=== PATIENT | female | born 1940 | race Caucasian/White ===

== ENCOUNTER 2016-03-09 15:36 | Outpatient (CLI) ==
--- NOTE | 2016-03-09 16:12 | DI ---
EXAM: Two views of the chest. History: Cough. Comparison: Chest radiograph 08/22/2015 Findings: Heart size is normal. Lingular subsegmental atelectasis or infiltrate similar to the prev ious study. No developing opacities. No pleural fluid and no pneumothorax. No acute osseous abnor malities. Impression: Mild lingular subsegmental atelectasis or infiltrate similar to the previous study.
== END 2016-03-09 15:37 | disposition home or self-care (01) ==
LOC: RAD 15:36
PROVIDERS: ATTEND Family Medicine
DX: R05 Cough (principal)

== ENCOUNTER 2016-05-14 12:33 | Outpatient (CLI) | payer OTHER ==
--- NOTE | 2016-05-14 13:12 | DI ---
EXAM: PA and lateral views of the chest HISTORY: Cough. COMPARISON: Chest x-ray 03/09/2016 FINDINGS: The cardiomediastinal silhouette is normal. There is no pneumothorax or pleural effusion . There is no consolidation, nodule or mass. The osseous structures demonstrate significant degene rative disease. There are surgical clips in right upper quadrant. IMPRESSION: No acute cardiopulmonary process.
== END 2016-05-14 12:34 | disposition home or self-care (01) ==
LOC: RAD 12:33
PROVIDERS: ATTEND Family Medicine
DX: J40 Bronchitis, not specified as acute or chronic (principal); R05 Cough

== ENCOUNTER 2016-06-12 18:43 | Inpatient (IN) ==
--- NOTE | 2016-06-12 19:29 | ED.PDOC ---
General ED Provider: Dr. LISA MADDEN Chief Complaint: Abdominal Pain Stated Complaint: hurting in the uppwer part of the belly, nausea, has been hurtingin the head, and some dizziness since . also right side chest pain, hurts to breath. Time Seen by Physician: 19:27 Mode of Arrival: Walk-In Information Source: Patient Primary Care Provider: KAL LYONS Nursing and Triage Documentation Reviewed and Agree: Yes GI Complaint Exam - Abdominal Pain Complaint/Exam Onset: Gradual Symptoms Are: Still present Initial Severity: Moderate Current Severity: Moderate Location of Pain: Epigastric Character: Reports: Dull, Aching Aggravating: Reports: Food, Deep breaths Alleviating: Reports: None Associated Signs and Symptoms: Reports: Dizziness, Nausea, Vomiting. Denies: Diaphoresis, Fever, Cough, Chest pain, Back pain, Constipation, Blood in stool, Dysuria, Urinary frequency, Decreased urine output, Decreased appetite, Vaginal bleeding, Vaginal discharge, Diarrhea, Sore throat, Decreased activity AAA Risk Factors: Reports: None Cardiac Risk Factors: Reports: None Ectopic Risk Factors: Reports: None Ovarian Torsion Risk Factors: Reports: None Surgical Obstruction Risk Factors: Reports: None Related Surgical History: Reports: None Patient Rh Status: Unknown Abdominal Findings: Absent: Pulsatile mass, Abdominal distention, Unequal femoral pulses Differential Diagnoses: Gastroenteritis, Pneumonia, PUD Review of Systems - Review Of Systems Constitutional: Reports: Malaise, Weakness Eyes: Reports: No symptoms Ears, Nose, Mouth, Throat: Reports: No symptoms Respiratory: Reports: Cough Cardiac: Reports: Chest pain GI: Reports: No symptoms : Reports: No symptoms Musculoskeletal: Reports: No symptoms Skin: Reports: No symptoms Neurological: Reports: Anxiety, Headache Endocrine: Reports: No symptoms Hematologic/Lymphatic: Reports: No symptoms All Other Systems: Reviewed and Negative Past Medical History - Past Medical History Previously Healthy: No Endocrine: Reports: None Cardiovascular: Reports: None Respiratory: Reports: None Hematological: Reports: None Gastrointestinal: Reports: None Genitourinary: Reports: None Neuro/Psych: Reports: None Musculoskeletal: Reports: None Cancer: Reports: None Last Menstrual Period: na - Surgical History General Surgical History: Reports: Hysterectomy, Cholecystectomy, Other ( surgery for the trigeminal neuralgia.) - Family History Family History: Reports: None - Social History Smoking Status: Former smoker Hx Substance Use: No Alcohol Screening: None - Immunizations Tetanus Shot up to Date: No (unknown) Physical Exam - Physical Exam Appearance: Ill-appearing Pain Distress: Moderate Eyes: EOMI ENT: Ears normal, Nose normal, Oropharynx normal Respiratory: Airway patent, Breath sounds clear, Breath sounds equal, Respirations nonlabored Cardiovascular: RRR, Pulses normal, No rub, No murmur GI/: Soft, Tender Musculoskeletal: Normal strength, ROM intact, No edema, No calf tenderness Skin: Warm, Dry, Normal color Neurological: Sensation intact, Motor intact, Reflexes intact, Cranial nerves intact, Alert, Oriented Psychiatric: Affect appropriate, Mood appropriate Interpretation - Radiology Interpretation Radiology Interpretation By: Radiologist Radiology Results: Positive Exam Interpreted: CT Scan Physician Notification - Case Discussed Time of Notification: 20:59 (dr barton) Critical Care Note - Critical Care Note Total Time (mins): 0 Course - Course Hematology/Chemistry: 06/12/16 19:30 06/12/16 19:30 Orders, Labs, Meds: Lab Review 06/12/16 06/12/16 06/12/16 19:25 19:30 19:52 WBC 13.15 H RBC 4.61 Hgb 14.3 Hct 41.7 MCV 90.5 MCH 31.0 MCHC 34.3 RDW Coeff of Sadaf 12.8 Plt Count 245 Immature Gran % (Auto) 0.5 Neut % (Auto) 80.8 Lymph % (Auto) 9.1 L [place] % (Auto) 9.0 Eos % (Auto) 0.4 Baso % (Auto) 0.2 Immature Gran # (Auto) 0.1 Neut # 10.6 H Lymph # 1.2 [place] # 1.2 Eos # 0.1 Baso # 0.0 Puncture Site Lb O2 Saturation 97.0 ABG pH 7.429 ABG pCO2 25.1 L ABG pO2 86.0 ABG HCO3 16.6 L ABG Total CO2 17 L ABG Base Excess -8 L Maury Test + FiO2 % 21.0 Sodium 135 L Potassium 3.9 Chloride 101 Carbon Dioxide 19 L Anion Gap 18.9 BUN 13 Creatinine 0.80 Estimated GFR (MDRD) 70.00 BUN/Creatinine Ratio 16.25 Glucose 106 Lactic Acid Calcium 9.9 Total Bilirubin 1.01 AST 47 H ALT 40 Alkaline Phosphatase 303 H Total Creatine Kinase 113 Troponin I 0.0120 Total Protein 7.9 Albumin 3.6 Globulin 4.3 Albumin/Globulin Ratio 0.84 Amylase 38 Lipase 7 L Procalcitonin Urine Color Yellow Urine Clarity Clear Urine pH 5.5 Ur Specific [place] >=1.030 Urine Protein 2+ Urine Glucose (UA) Negative Urine Ketones 4+ Urine Blood Negative Urine Nitrite Negative Urine Bilirubin 3+ Urine Urobilinogen >=8.0 Ur Leukocyte Esterase Negative Ur Squamous Epith Cells Tntc Amorphous Sediment 1+ Urine Bacteria 1+ Hyaline Casts 5-10 Urine Mucus 2+ 06/12/16 20:00 WBC RBC Hgb Hct MCV MCH MCHC RDW Coeff of Sadaf Plt Count Immature Gran % (Auto) Neut % (Auto) Lymph % (Auto) [place] % (Auto) Eos % (Auto) Baso % (Auto) Immature Gran # (Auto) Neut # Lymph # [place] # Eos # Baso # Puncture Site O2 Saturation ABG pH ABG pCO2 ABG pO2 ABG HCO3 ABG Total CO2 ABG Base Excess [place] Test FiO2 % Sodium Potassium Chloride Carbon Dioxide Anion Gap BUN Creatinine Estimated GFR (MDRD) BUN/Creatinine Ratio Glucose Lactic Acid 5.9 Calcium Total Bilirubin AST ALT Alkaline Phosphatase Total Creatine Kinase Troponin I Total Protein Albumin Globulin Albumin/Globulin Ratio Amylase Lipase Procalcitonin 0.07 Urine Color Urine Clarity Urine pH Ur Specific [place] Urine Protein Urine Glucose (UA) Urine Ketones Urine Blood Urine Nitrite Urine Bilirubin Urine Urobilinogen Ur Leukocyte Esterase Ur Squamous Epith Cells Amorphous Sediment Urine Bacteria Hyaline Casts Urine Mucus Orders Category Date Time Status ABG DRAW REQUEST Stat CARDIO 06/12/16 19:52 Ordered EKG-(ED ONLY) Stat CARDIO 06/12/16 19:10 Ordered ED IV/MEDIPORT/POWERPORT .ONCE EMERGENCY 06/12/16 19:50 Active ABG Stat LAB 06/12/16 19:52 Completed AMYLASE Stat LAB 06/12/16 19:30 Completed CBC W/ AUTO DIFF Stat LAB 06/12/16 19:30 Completed COMPREHENSIVE METABOLIC PANEL Stat LAB 06/12/16 19:30 Completed CREATINE KINASE Stat LAB 06/12/16 19:30 Completed LACTIC ACID Stat LAB 06/12/16 20:00 Completed LIPASE Stat LAB 06/12/16 19:30 Completed PROCALCITONIN Stat LAB 06/12/16 20:00 Completed RAPID FLU A/B Stat LAB 06/12/16 20:58 Uncollected TROPONIN I Stat LAB 06/12/16 19:30 Completed URINALYSIS C & S IF INDICATED Stat LAB 06/12/16 19:25 Completed 0.9 % Sodium Chloride [Saline Flush] MEDS 06/12/16 19:50 Ordered 1 syr IVF PRN PRN Ceftriaxone Sodium [Rocephin] MEDS 06/12/16 20:06 Discontinued 1 gm .ROUTE .STK-MED ONE Ceftriaxone Sodium [Rocephin] 1 gm MEDS 06/12/16 19:50 Discontinued 0.9 % Sodium Chloride [Sodium Chloride] 50 ml IV ONCE Dexamethasone 4 mg/ml Inj [Decadron 4 mg/ml Sdv] MEDS 06/12/16 19:51 Discontinued 4 mg IVP ONCE STA Mag-Al Plus//Lidocaine [Gi Cocktail] MEDS 06/12/16 19:31 Discontinued 30 ml PO ONCE STA Meperidine HCl/Pf [Demerol 25 mg/ml Syringe] MEDS 06/12/16 19:53 Discontinued 25 mg IVP ONCE STA Ondansetron HCl/Pf [Zofran 4 mg/2 ml] MEDS 06/12/16 19:31 Discontinued 4 mg IM ONCE STA Ondansetron HCl/Pf [Zofran 4 mg/2 ml] MEDS 06/12/16 20:14 Discontinued 4 mg IVP ONCE STA Sodium Chloride 0.9% [Sodium Chloride] 500 ml MEDS 06/12/16 20:14 Active IV 125 mls/hr Sucralfate [Carafate] MEDS 06/12/16 19:31 Discontinued 1 gm PO ONCE STA CT ABDOMEN/PELVIS WO CONTRAST Stat RADS 06/12/16 19:[address] CHEST W/O CONTRAST Stat RADS 06/12/16 19:[address] HEAD W/O CONTRAST Stat RADS 06/12/16 19:10 Completed Medications Generic Name Dose Route Start Last Admin Trade Name Freq PRN Reason Stop Dose Admin Sodium Chloride 500 mls @ 125 mls/hr 06/12/16 20:14 06/12/16 20:25 Sodium Chloride IV 06/13/16 00:13 125 mls/hr .Q4H STA Administration Sodium Chloride 1 syr 06/12/16 19:50 06/12/16 20:12 Saline Flush IVF 1 syr PRN PRN Administration To flush IV Discontinued Medications Generic Name Dose Route Start Last Admin Trade Name Freq PRN Reason Stop Dose Admin Al Hydroxide/Mg Hydroxide 30 ml 06/12/16 19:31 06/12/16 19:53 Gi Cocktail PO 06/12/16 19:32 30 ml ONCE STA Administration Dexamethasone Sodium Phosphate 4 mg 06/12/16 19:51 06/12/16 20:14 Decadron 4 Mg/Ml Sdv IVP 06/12/16 19:52 4 mg ONCE STA Administration Ceftriaxone Sodium 1 gm/ 50 mls @ 75 mls/hr 06/12/16 19:50 06/12/16 20:20 Sodium Chloride IV 06/12/16 20:29 75 mls/hr ONCE STA Administration Meperidine HCl 25 mg 06/12/16 19:53 06/12/16 20:17 Demerol 25 Mg/Ml Syringe IVP 06/12/16 19:54 25 mg ONCE STA Administration Ondansetron HCl 4 mg 06/12/16 19:31 06/12/16 19:54 Zofran 4 Mg/2 Ml IM 06/12/16 19:32 Not Given ONCE STA Ondansetron HCl 4 mg 06/12/16 20:14 06/12/16 20:17 Zofran 4 Mg/2 Ml IVP 06/12/16 20:15 4 mg ONCE STA Administration Sucralfate 1 gm 06/12/16 19:31 06/12/16 19:52 Carafate PO 06/12/16 19:32 1 gm ONCE STA Administration Vital Signs: Temp Pulse Resp BP Pulse Ox 06/12/16 20:40 00/00 L 06/12/16 18:45 98.7 F 110 H 20 143/81 H 92 L Departure - Departure Time of Disposition: 20:59 Disposition: ADMITTED INPATIENT Discharge Problem: Pneumonia Qualifiers: Pneumonia type: due to unspecified organism Laterality: right Lung location: middle lobe of lung Qualifier Code: (J18.1) Lobar pneumonia, unspecified organism Instructions: Community Acquired Pneumonia (ED) Condition: Stable Pt referred to PMD for follow-up: No Allergies/Adverse Reactions: Allergies morphine Adverse Reaction (Verified 06/12/16 19:55) HALLUCINATIONS Home Medications: Ambulatory Orders Gabapentin 600 mg PO QID 06/12/16 Disposition Discussed With: Patient, Family
[2016-06-12] MEDS ORDERED: MORPHINE 2 MG/ML SYRINGE IM STA (19:31)
[2016-06-12] MEDS ORDERED: ZOFRAN 4 MG/2 ML IM STA (19:31)
[2016-06-12] MEDS ORDERED: GI COCKTAIL PO STA (19:31)
[2016-06-12] MEDS ORDERED: CARAFATE PO STA (19:31)
--- NOTE | 2016-06-12 19:35 | CT ---
The EXAM: CT scan brain without contrast HISTORY: Dizziness COMPARISON: CT scan brain 06/02/2010 FINDINGS: Contiguous axial images obtained from the skull base to the convexities without contrast utilizing 5-mm collimation. Sagittal and coronal reconstructions were imaged and reviewed. The luke tricles and CSF spaces are prominent compatible with age appropriate atrophy. There is periventricu lar hypodensity noted compatible with chronic microvascular disease. Minimal mucoperiosteal thicken ing is seen in the bilateral IMPRESSION: Age appropriate atrophy with chronic microvascular disease. No acute intracranial findings.
[2016-06-12 19:38] LABS: BASOPHILS % (AUTO) 0.2 % (0.0-3.0); EOSINOPHILS # (AUTO) 0.1 K/ul (0.0-0.7); EOSINOPHILS % (AUTO) 0.4 % (0.0-7.0); HEMATOCRIT 41.7 % (37.0-47.0); HEMOGLOBIN 14.3 g/dl (12.0-16.0); IMMATURE GRANULOCYTE % (AUTO) 0.5 % (0.0-5.0); LYMPHOCYTES # (AUTO) 1.2 K/uL (0.60-3.4); LYMPHOCYTES % (AUTO) 9.1 (10.0-50.0); MEAN CORPUSCULAR HGB CONC 34.3 (31.8-35.4); MEAN CORPUSCULAR VOLUME 90.5 fl (81.0-99.0); MONOCYTES # (AUTO) 1.2 K/uL (0.4-2.0); NEUTROPHILS # (AUTO) 10.6 K/ul (2.0-6.9); NEUTROPHILS % (AUTO) 80.8; PLATELET COUNT 245 10^3/uL (140-440); RED BLOOD COUNT 4.61 10^6/ul (4.20-5.40); WHITE BLOOD COUNT 13.15 K/ul (4.6-10.2)
[2016-06-12 19:41] LABS: BILIRUBIN,URINE 3+ (NEGATIVE); KETONES,URINE 4+ (NEGATIVE); LEUKOCYTE ESTERASE ,URINE Negative (NEGATIVE); NITRITE,URINE Negative (NEGATIVE); PH,URINE 5.5 (5-9); PROTEIN,URINE 2+ (NEGATIVE); URINE, BLOOD Negative (NEGATIVE)
--- NOTE | 2016-06-12 19:41 | CT ---
Exam: CT of the abdomen and pelvis without contrast History: Epigastric pain Technique: [address] of the abdomen and pelvis without intravascular contrast FINDINGS: Consolidative opacity in the basilar right middle lobe. Small right pleural fluid and ad jacent consolidative opacity of the right lower lobe. No significant liver abnormality. The adrenals , pancreas and spleen are unremarkable. The stomach and hiatus are unremarkable.Prior cholecystectom y. Kidneys and proximal collecting system are unremarkable. The appendix is not seen. Bowel loops de monstrate normal caliber. No inflamatory change seen in the mesentery or retroperitoneum. Atheroscle rotic calcification of the aorta without aneurysm. Prior hysterectomy. Normal urinary bladder. A few sigmoid colonic diverticula. No inflammation of the pelvic fat. No acute findings of the skeleton. Impression: 1. No inflammatory process, bowel or urinary obstruction is seen. 2. Consolidative opacities in the right middle and right lower lobe favoring pneumonia .
--- NOTE | 2016-06-12 19:45 | CT ---
EXAM: CT scan thorax without contrast HISTORY: Trauma COMPARISON: None. FINDINGS: Contiguous axial images obtained through the thorax without contrast utilizing 5-mm colli mation. Sagittal and coronal reconstructions were imaged and reviewed.. The thoracic inlet is unre markable. There are subcentimeter pretracheal lymph nodes. There is a tiny pericardial effusion me asuring 6 mm. There is minimal coronary artery calcification. There is a hiatal hernia. Minimal sc arring and/or atelectasis within the inferior lingular segment. Dense consolidation is noted right m iddle lobe. Right pleural effusion with right basilar atelectasis.. There has been a prior cholecys tectomy.. Degenerative changes are seen within the lower thoracic spine. IMPRESSION: Normal-sized cardiac silhouette with coronary artery calcification. Consolidation is seen within the right middle lobe. There is a small right pleural effusion with ri ght basilar atelectasis. Tiny pericardial effusion. Prior cholecystectomy
[2016-06-12] MEDS ORDERED: ROCEPHIN 1 GM in SODIUM CHLORIDE 50 ML IV STA (19:50)
[2016-06-12] MEDS ORDERED: DECADRON 4 MG/ML SDV IVP STA (19:51)
[2016-06-12] MEDS ORDERED: DEMEROL 25 MG/ML SYRINGE IVP STA (19:53)
[2016-06-12] MEDS ORDERED: ROCEPHIN ONE (20:06)
[2016-06-12 20:08] LABS: ABG BASE EXCESS -8 (-2.0-2.0); ABG HCO3 16.6 (22.0-26.0); ABG PCO2 25.1 mmHg (35-45); ABG PH 7.429 (7.35-7.45); ABG TCO2 17 (22.0-28.0)
[2016-06-12 20:13] LABS: ALBUMIN 3.6 g/dL (3.4-5.0); ALBUMIN/GLOBULIN RATIO 0.84; ANION GAP 18.9; BILIRUBIN,TOTAL 1.01 mg/dL (0.00-1.20); BUN/CREATININE RATIO 16.25; CALCIUM 9.9 mg/dL (8.2-10.2); CREATININE 0.8 mg/dL (0.60-1.30); POTASSIUM 3.9 mmol/L (3.5-5.10); TOTAL PROTEIN 7.9 g/dL (5.8-8.1); TROPONIN I 0.012 ng/ml (0.0000-0.4000)
[2016-06-12] MEDS ORDERED: SODIUM CHLORIDE 500 ML IV STA (20:14)
[2016-06-12] MEDS ORDERED: ZOFRAN 4 MG/2 ML IVP STA (20:14)
[2016-06-12 20:15] LABS: ADD URINE MICROSCOPIC YES
[2016-06-12 20:36] LABS: BACTERIA,URINE 1+ (NOT PRESENT)
[2016-06-12] MEDS ORDERED: TYLENOL PO PRN (20:59)
[2016-06-12] MEDS ORDERED: LOVENOX SUBCUT SCH (21:00)
[2016-06-12 21:22] LABS: FLU INTERNAL QC INTERNAL QC VALID; RAPID FLU A NEGATIVE (NEGATIVE); RAPID FLU B NEGATIVE (NEGATIVE)
[2016-06-12] MEDS ORDERED: ZITHROMAX 500 MG in SODIUM CHLORIDE 250 ML IV SCH (21:30)
[2016-06-12 21:35] VITALS: BMI 27.4
[2016-06-12] MEDS: SODIUM CHLORIDE 1,000 ML IV SCH (21:49)
[2016-06-12] MEDS ORDERED: MORPHINE 2 MG/ML SYRINGE ONE (22:15)
[2016-06-12] MEDS: SOLU-MEDROL 40 MG IVP SCH (22:22)
[2016-06-12] MEDS: ZOFRAN 4 MG/2 ML IVP SCH (22:22)
[2016-06-12] MEDS: PROTONIX PO SCH (22:22)
[2016-06-12] MEDS: MORPHINE 2 MG/ML SYRINGE IVP SCH (22:23)
[2016-06-12] MEDS ORDERED: LOVENOX ONE (22:23)
[2016-06-13] MEDS: DUONEB NEB SCH ×5 (00:17→23:04)
[2016-06-13] MEDS ORDERED: ZOFRAN 4 MG/2 ML ONE (04:12)
[2016-06-13] MEDS ORDERED: MORPHINE 2 MG/ML SYRINGE ONE (04:12)
[2016-06-13 04:15] LABS: BASOPHILS % (AUTO) 0.2 % (0.0-3.0); HEMOGLOBIN 12.7 g/dl (12.0-16.0); IMMATURE GRANULOCYTE % (AUTO) 0.7 % (0.0-5.0); LYMPHOCYTES # (AUTO) 0.6 K/uL (0.60-3.4); LYMPHOCYTES % (AUTO) 5.3 (10.0-50.0); MEAN CORPUSCULAR HEMOGLOBIN 30.9 pg (27.0-31.0); MEAN CORPUSCULAR HGB CONC 34.3 (31.8-35.4); MONOCYTES # (AUTO) 0.3 K/uL (0.4-2.0); MONOCYTES % (AUTO) 2.3 (0-10); NEUTROPHILS # (AUTO) 9.9 K/ul (2.0-6.9); NEUTROPHILS % (AUTO) 91.5; PLATELET COUNT 228 10^3/uL (140-440); RED BLOOD COUNT 4.11 10^6/ul (4.20-5.40); WHITE BLOOD COUNT 10.85 K/ul (4.6-10.2)
[2016-06-13] MEDS: ZOFRAN 4 MG/2 ML IVP SCH ×4 (04:28→23:37)
[2016-06-13 04:37] LABS: ALBUMIN/GLOBULIN RATIO 0.75; ANION GAP 18.1; BILIRUBIN,TOTAL 0.36 mg/dL (0.00-1.20); BUN/CREATININE RATIO 17.1; CALCIUM 9.1 mg/dL (8.2-10.2); CREATININE 0.76 mg/dL (0.60-1.30); POTASSIUM 4.1 mmol/L (3.5-5.10); TROPONIN I 0.016 ng/ml (0.0000-0.4000)
[2016-06-13] MEDS: MORPHINE 2 MG/ML SYRINGE IVP SCH ×3 (04:39→20:08)
[2016-06-13] MEDS: PROTONIX PO SCH (05:31)
[2016-06-13] MEDS ORDERED: NON-FORMULARY MEDICATION (Nabumetone 500 MG) PO SCH (08:00)
[2016-06-13] MEDS: RELAFEN PO SCH ×2 (08:29→17:20)
[2016-06-13] MEDS ORDERED: NON-FORMULARY MEDICATION (Gabapentin [Gabapentin] 600 MG) PO SCH (09:00)
[2016-06-13] MEDS: VASOTEC PO SCH (09:10)
[2016-06-13] MEDS: TEGRETOL PO SCH ×2 (09:10→20:06)
[2016-06-13] MEDS: NEURONTIN PO SCH ×4 (09:11→20:06)
[2016-06-13] MEDS: ROCEPHIN 1 GM in SODIUM CHLORIDE 50 ML IV SCH (09:12)
[2016-06-13] MEDS: SOLU-MEDROL 40 MG IVP SCH ×2 (09:14→20:07)
[2016-06-13] MEDS: SODIUM CHLORIDE 1,000 ML IV SCH ×2 (10:20→13:47)
[2016-06-13 12:32] LABS: TROPONIN I 0.01 ng/ml (0.0000-0.4000)
[2016-06-13 12:33] LABS: CREATINE KINASE MB 4.2 ng/ml (0.0-3.6)
[2016-06-13] MEDS: SINEQUAN PO SCH (20:06)
[2016-06-13] MEDS: LOVENOX SUBCUT SCH (20:07)
[2016-06-13] MEDS: ZITHROMAX 500 MG in SODIUM CHLORIDE 250 ML IV SCH (20:07)
[2016-06-13] MEDS ORDERED: DOXEPIN HCL PO SCH (21:00)
[2016-06-14] MEDS: DUONEB NEB SCH ×4 (04:48→23:07)
[2016-06-14 05:00] LABS: BASOPHILS % (AUTO) 0.1 % (0.0-3.0); HEMATOCRIT 32.2 % (37.0-47.0); HEMOGLOBIN 11.1 g/dl (12.0-16.0); IMMATURE GRANULOCYTE % (AUTO) 0.6 % (0.0-5.0); LYMPHOCYTES # (AUTO) 0.8 K/uL (0.60-3.4); LYMPHOCYTES % (AUTO) 8.4 (10.0-50.0); MEAN CORPUSCULAR HEMOGLOBIN 31.2 pg (27.0-31.0); MEAN CORPUSCULAR HGB CONC 34.5 (31.8-35.4); MEAN CORPUSCULAR VOLUME 90.4 fl (81.0-99.0); MONOCYTES # (AUTO) 0.5 K/uL (0.4-2.0); MONOCYTES % (AUTO) 5.2 (0-10); NEUTROPHILS # (AUTO) 8.2 K/ul (2.0-6.9); NEUTROPHILS % (AUTO) 85.7; PLATELET COUNT 236 10^3/uL (140-440); RED BLOOD COUNT 3.56 10^6/ul (4.20-5.40); WHITE BLOOD COUNT 9.54 K/ul (4.6-10.2)
[2016-06-14] MEDS: SODIUM CHLORIDE 1,000 ML IV SCH ×2 (05:05→18:20)
[2016-06-14] MEDS: ZOFRAN 4 MG/2 ML IVP SCH ×4 (05:05→23:00)
[2016-06-14] MEDS: MORPHINE 2 MG/ML SYRINGE IVP SCH ×3 (05:05→20:56)
[2016-06-14 05:31] LABS: ALBUMIN 2.8 g/dL (3.4-5.0); ALBUMIN/GLOBULIN RATIO 0.85; ANION GAP 11.5; BILIRUBIN,TOTAL 0.14 mg/dL (0.00-1.20); BUN/CREATININE RATIO 15.94; CALCIUM 8.7 mg/dL (8.2-10.2); CREATININE 0.69 mg/dL (0.60-1.30); POTASSIUM 4.5 mmol/L (3.5-5.10); TOTAL PROTEIN 6.1 g/dL (5.8-8.1)
[2016-06-14] MEDS: PROTONIX PO SCH (05:33)
[2016-06-14] MEDS: NEURONTIN PO SCH ×4 (08:11→20:01)
[2016-06-14] MEDS: RELAFEN PO SCH ×2 (08:12→17:25)
[2016-06-14] MEDS: ROCEPHIN 1 GM in SODIUM CHLORIDE 50 ML IV SCH (08:12)
[2016-06-14] MEDS: TEGRETOL PO SCH ×2 (08:12→20:01)
[2016-06-14] MEDS: VASOTEC PO SCH (08:13)
[2016-06-14] MEDS: SOLU-MEDROL 40 MG IVP SCH ×2 (08:37→20:56)
[2016-06-14] MEDS: ZITHROMAX 500 MG in SODIUM CHLORIDE 250 ML IV SCH (20:01)
[2016-06-14] MEDS: SINEQUAN PO SCH (20:01)
[2016-06-14] MEDS: LOVENOX SUBCUT SCH (20:02)
[2016-06-15 04:44] LABS: BASOPHILS % (AUTO) 0.5 % (0.0-3.0); EOSINOPHILS % (AUTO) 0.2 % (0.0-7.0); HEMATOCRIT 31.8 % (37.0-47.0); HEMOGLOBIN 10.9 g/dl (12.0-16.0); IMMATURE GRANULOCYTE % (AUTO) 1.4 % (0.0-5.0); LYMPHOCYTES # (AUTO) 0.9 K/uL (0.60-3.4); LYMPHOCYTES % (AUTO) 13.2 (10.0-50.0); MEAN CORPUSCULAR HEMOGLOBIN 31.7 pg (27.0-31.0); MEAN CORPUSCULAR HGB CONC 34.3 (31.8-35.4); MEAN CORPUSCULAR VOLUME 92.4 fl (81.0-99.0); MONOCYTES # (AUTO) 0.3 K/uL (0.4-2.0); NEUTROPHILS # (AUTO) 5.3 K/ul (2.0-6.9); NEUTROPHILS % (AUTO) 79.7; PLATELET COUNT 241 10^3/uL (140-440); RED BLOOD COUNT 3.44 10^6/ul (4.20-5.40); WHITE BLOOD COUNT 6.65 K/ul (4.6-10.2)
[2016-06-15 04:58] LABS: ALBUMIN 2.8 g/dL (3.4-5.0); ALBUMIN/GLOBULIN RATIO 0.93; BILIRUBIN,TOTAL 0.12 mg/dL (0.00-1.20); BUN/CREATININE RATIO 10.76; CALCIUM 8.7 mg/dL (8.2-10.2); CREATININE 0.65 mg/dL (0.60-1.30); TOTAL PROTEIN 5.8 g/dL (5.8-8.1)
[2016-06-15] MEDS: MORPHINE 2 MG/ML SYRINGE IVP SCH (05:27)
[2016-06-15] MEDS: DUONEB NEB SCH ×2 (05:29→11:12)
[2016-06-15] MEDS: ZOFRAN 4 MG/2 ML IVP SCH (05:31)
[2016-06-15] MEDS: PROTONIX PO SCH (05:39)
[2016-06-15] MEDS ORDERED: PREDNISONE PO SCH (08:30)
[2016-06-15] MEDS: SODIUM CHLORIDE 1,000 ML IV SCH (08:32)
[2016-06-15] MEDS: RELAFEN PO SCH ×2 (08:32→17:22)
[2016-06-15] MEDS: NEURONTIN PO SCH ×3 (08:33→17:21)
[2016-06-15] MEDS: VASOTEC PO SCH (08:33)
[2016-06-15] MEDS: TEGRETOL PO SCH (08:33)
[2016-06-15] MEDS ORDERED: OMNICEF PO SCH (09:00)
[2016-06-15] MEDS ORDERED: ZITHROMAX PO SCH (09:00)
--- NOTE | 2016-06-15 09:56 | HP ---
DATE OF SERVICE: 06/12/16 SOURCE: The source of this information is prior knowledge of the patient, review of her office records as well as discussion with she; reviewing ER personnel and current chart, all considered reliable. PATIENT PROFILE: Ms. Packer is a 76-year-old, , female resident of [place]; she was cooperative. CHIEF COMPLAINT: "I have been dizzy and fatigued." BRIEF HISTORY OF PRESENT ILLNESS: She has no definite or proven chronic lung disease. One year ago, she had cough and others and ended up with a chest x-ray that showed bibasilar infiltrates; she was treated as an outpatient with Levaquin and steroids. Her chest x-ray went to resolution. As she presented to the office the first part of the year complaining of four months of on and off cough. She was subsequently treated with Prednisone, Levaquin and had chest x-rays that showed nothing acute. Three to five days prior to admission she developed increasing fatigue, malaise and presented to the ER again. She was found this time to have right middle lobe and right lower lobe infiltrate on CT. CT of the abdomen and head were unremarkable. Her urine was surprisingly with specific gravity greater than 1.030. With all this, Dr. Olivo admitted her in my absence. When I saw [place] returning [place] of the country, I found that she was already feeling somewhat better; please note that this time her Influenza A and B were negative. She smoked from age 17, briefly stopping at 19, but was exposed to 30 years of secondary smoke from her first . PAST HISTORY: CHILDHOOD: Unremarkable. ALLERGIES/INTOLERANCE: NSAID (GI UPSET), CLAUSTROPHOBIC IN GENERAL, ELAVIL ( FATIGUE), LORTAB (ZOMBIE- DOES NOT WORK), NORPRAMIN (FATIGUE), PENICILLIN ( VOMITING AND DIARRHEA), Z-PACK (RASH) CURRENT MEDICATIONS: Doxepin 50 mg 1 to 2 at bedtime Vasotec 5 mg one a day Gabapentin 600 mg four times a day Relafen 500 mg twice a day Tegretol 200 mg twice a day HOSPITALIZATIONS/SURGERIES/PROCEDURES: She is 2, Para 2, AB 0. She had a flexible, 1987; colonoscopy three times; normal the first two and a polyp on the last one done by Dr. Casas at [facility] on 10/17/12, repeat in 3 years. She had an EGD, normal, [facility], Dr. Warren, 04/17/10. She had ABDOULAYE and appendix, age 21; breast biopsy, 1990; lap gallbladder, [facility], Dr. Judith Mares, 04/24/10; left suboccipital craniotomy; trigeminal microvascular decompression, Dr. Cabrera, [facility], 06/17/10 and a left percutaneous rhizotomy, trigeminal nerve at [facility], and a rhizotomy at [facility] on 08/29/12. Admission dates include: [facility] 08/03/95 through 08/06/95 for gastroenteritis; [facility] 04/14 through 04/16/04 for near syncope, volume depletion; 04/16 through 04/17 for nausea and vomiting; 04/24/10 for lap gallbladder; 05/20 through for nausea and others. 06/03 through 06/08/10 for ataxia and others. FAMILY HISTORY: Diabetes in mother; colon cancer in father and maternal uncle; breast cancer in maternal aunt; paternal aunt. Hypertension in mother, sister, brother. HABITS: Smoker, age 17 and briefly through age 19; secondhand smoke exposed for 30 years which stopped at age 31. 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 REVIEW OF SYSTEMS: GENERAL: No documented fever or injury. INTEGUMENT: No rash or ulcers. HEENT: Usual facial trigeminal pain; on the right. NECK: No pain or mass. CHEST: Occasional cough without hemoptysis. CARDIOVASCULAR: Denies palpitations or ankle edema. GI: Denies nausea, vomiting or diarrhea but has had poor appetite. : Denies dysuria, hematuria. MUSCULOSKELETAL/NEUROLOGIC: No red, swollen joints. Neurologic: On and off right facial pain. PSYCHIATRIC: No memory loss. PHYSICAL EXAMINATION: VITALS: Weight 164; height 5 feet 4.5 inches. Temperature 96.9, has been afebrile, pulse 84 and steady, respirations 20, BP 133/82. GENERAL: Appears younger than stated age white female in no obvious distress. INTEGUMENT: No rash or ulceration. Eyegrounds are pink. Nonicteric sclerae. Mucous membranes moist. HEENT: Right slight facial droop. Hypesthesia on the right trigeminal area. Pupils equal, round, extraocular movements intact. Tongue is midline. NECK: No visible lymphadenopathy, thyromegaly, mass seen or felt and supple. CHEST: Clear without wheeze or dullness. CARDIOVASCULAR: S1, S2 without murmur, rubs or thrills. No carotid bruits. GI: Soft. No rebound, guarding, mass or tenderness. MUSCULOSKELETAL/NEUROLOGIC: Except for right facial weakness - mild and barely perceptible; four quadrant movements are equal, director of sustainability programs are equal, pleasant personable conversation and intact thought processes. ASSESSMENT/PROBLEM LIST: 0. 76-year-old white female advanced age. 1. Allergies/Intolerances - see above. 2. Procedural history - see above. 3. Family history - see above. 4. 2, Para 2, AB 0. 5. Menopausal - surgical, age 21. 6. Fibrocystic breast disease. 7. Brief smoker and secondhand smoke exposure. 8. History of secondhand smoke exposure. 9. Fatty liver. 10. Allergic rhinitis. 11. History of iron deficiency anemia. 12. Intermittent anxiety. 13. Chronic back pain. 14. Type 2 diabetes - year 1999 controlled and markedly improved with weight loss. 15. Fibromyalgia. 16. Hyperlipidemia. 17. Chronic insomnia. 18. History of irritable bowel. 19. Peripheral neuropathy on nerve conduction. 20. Osteopenia. 21. Trigeminal neuralgia 07/08/08 with various treatments and even stereotactic ablation. 22. Intermittent vertigo. 23. B12 deficiency with positive Josiah's, 1993 and replaced. 24. Vitamin D deficiency. 25. Right facial pain. REASON FOR ADMISSION: # Dizziness # Fatigue # Abnormal CT of the chest - right middle, right lower lobe atelectasis versus infiltrate (on and off x-ray reportable issues since at least one year ago) PLAN: 1. Begin weaning maybe in the morning and may even discharge tomorrow with outpatient management. This whole situation may require pulmonary review. MARSHALLD
--- NOTE | 2016-06-15 13:56 | DI ---
EXAM: Two views of the chest. History: Follow-up pneumonia Comparison: Chest radiograph 05/14/2016, chest CT 06/12/2016 Findings: Heart size is upper limits of normal. The right middle lobe and right lower lobe lung inf iltrates are stable to slightly improved. Trace right pleural effusion. No pneumothorax. The visu alized osseous structures unchanged. Impression: Slight interval improvement of the right middle lobe and right lower lobe pneumonia. C ontinued follow-up recommended.
[2016-06-15 17:33] VITALS: BP 128/78; TEMP 98
--- NOTE | 2016-06-17 11:25 | DS ---
PATIENT PROFILE: Ms. Packer is a 76-year-old, , female resident of [place]; she was cooperative. CHIEF COMPLAINT: "I have been dizzy and fatigued." BRIEF HISTORY OF PRESENT ILLNESS: She has no definite or proven chronic lung disease. One year ago, she had cough and others and ended up with a chest x-ray that showed bibasilar infiltrates; she was treated as an outpatient with Levaquin and steroids. Her chest x-ray went to resolution. As she presented to the office the first part of the year complaining of four months of on and off cough. She was subsequently treated with Prednisone, Levaquin and had chest x-rays that showed nothing acute. Three to five days prior to admission she developed increasing fatigue, malaise and presented to the ER again. She was found this time to have right middle lobe and right lower lobe infiltrate on CT. CT of the abdomen and head were unremarkable. Her urine was surprisingly with specific gravity greater than 1.030. With all this, Dr. Olivo admitted her in my absence. When I [place], I found that she was already feeling somewhat better; please note that this time her Influenza A and B were negative. She smoked from age 17, briefly stopping at 19, but was exposed to 30 years of secondary smoke from her first . PAST HISTORY: CHILDHOOD: Unremarkable. ALLERGIES/INTOLERANCE: NSAID (GI UPSET), CLAUSTROPHOBIC IN GENERAL, ELAVIL ( FATIGUE), LORTAB (ZOMBIE- DOES NOT WORK), NORPRAMIN (FATIGUE), PENICILLIN ( VOMITING AND DIARRHEA), Z-PACK (RASH) CURRENT MEDICATIONS: Doxepin 50 mg 1 to 2 at bedtime Vasotec 5 mg one a day Gabapentin 600 mg four times a day Relafen 500 mg twice a day Tegretol 200 mg twice a day HOSPITALIZATIONS/SURGERIES/PROCEDURES: She is 2, Para 2, AB 0. She had a flexible, 1986; colonoscopy three times; normal the first two and a polyp on the last one done by Dr. Casas at [facility] on 10/17/12, repeat in 3 years. She had an EGD, normal, Dr. Briana Barker, 04/17/10. She had ABDOULAYE and appendix, age 21; breast biopsy, 1990; lap gallbladder, Dr. Judith Barker, 04/24/10; left suboccipital craniotomy; trigeminal microvascular decompression, [facility], 06/17/10 and a left percutaneous rhizotomy, trigeminal nerve at [facility], and a rhizotomy at [facility] on 08/29/12. Admission dates include: [employer] 08/03/95 through 08/06/95 for gastroenteritis; [facility] 04/14 through 04/16/04 for near syncope, volume depletion; 04/16 through 04/17 for nausea and vomiting; 04/24/10 for lap gallbladder; 05/20 through for nausea and others. 06/03 through 06/08/10 for ataxia and others. FAMILY HISTORY: Diabetes in mother; colon cancer in father and maternal uncle; breast cancer in maternal aunt; paternal aunt. Hypertension in mother, sister, brother. HABITS: Smoker, age 17 and briefly through age 19; secondhand smoke exposed for 30 years which stopped at age 31. 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 REVIEW OF SYSTEMS: GENERAL: No documented fever or injury. INTEGUMENT: No rash or ulcers. HEENT: Usual facial trigeminal pain; on the right. NECK: No pain or mass. CHEST: Occasional cough without hemoptysis. CARDIOVASCULAR: Denies palpitations or ankle edema. GI: Denies nausea, vomiting or diarrhea but has had poor appetite. : Denies dysuria, hematuria. MUSCULOSKELETAL/NEUROLOGIC: No red, swollen joints. Neurologic: On and off right facial pain. PSYCHIATRIC: No memory loss. PHYSICAL EXAMINATION: VITALS: Weight 164; height 5 feet 4.5 inches. Temperature 96.9, has been afebrile, pulse 84 and steady, respirations 20, BP 133/82. GENERAL: Appears younger than stated age white female in no obvious distress. INTEGUMENT: No rash or ulceration. Eyegrounds are pink. Nonicteric sclerae. Mucous membranes moist. HEENT: Right slight facial droop. Hypesthesia on the right trigeminal area. Pupils equal, round, extraocular movements intact. Tongue is midline. NECK: No visible lymphadenopathy, thyromegaly, mass seen or felt and supple. CHEST: Clear without wheeze or dullness. CARDIOVASCULAR: S1, S2 without murmur, rubs or thrills. No carotid bruits. GI: Soft. No rebound, guarding, mass or tenderness. MUSCULOSKELETAL/NEUROLOGIC: Except for right facial weakness - mild and barely perceptible; four quadrant movements are equal, repairer shoe sticks are equal, pleasant personable conversation and intact thought processes. ASSESSMENT/PROBLEM LIST: 0. 76-year-old white female advanced age. 1. Allergies/Intolerances - see above. 2. Procedural history - see above. 3. Family history - see above. 4. 2, Para 2, AB 0. 5. Menopausal - surgical, age 21. 6. Fibrocystic breast disease. 7. Brief smoker and secondhand smoke exposure. 8. History of secondhand smoke exposure. 9. Fatty liver. 10. Allergic rhinitis. 11. History of iron deficiency anemia. 12. Intermittent anxiety. 13. Chronic back pain. 14. Type 2 diabetes - year 1999 controlled and markedly improved with weight loss. 15. Fibromyalgia. 16. Hyperlipidemia. 17. Chronic insomnia. 18. History of irritable bowel. 19. Peripheral neuropathy on nerve conduction. 20. Osteopenia. 21. Trigeminal neuralgia 07/08/08 with various treatments and even stereotactic ablation. 22. Intermittent vertigo. 23. B12 deficiency with positive Josiah's, 1992 and replaced. 24. Vitamin D deficiency. 25. Right facial pain. REASON FOR ADMISSION: # Dizziness # Fatigue # Abnormal CT of the chest - right middle, right lower lobe atelectasis versus infiltrate (on and off x-ray reportable issues since at least one year ago) HOSPITAL COURSE: She was treated in my absence initially by Dr. Olivo with IV steroids, Rocephin and nebulized bronchodilators. She never ran a significant temperature. She remained fatigued but in general she felt somewhat better through the course of the treatment. I weaned her the morning of admission; repeat chest x-ray showed improvement. Her vitals remained stable. She was never hypoxic and she was agreeable to following the rest of the course of this illness as an outpatient. Her white count started at 13 and then dropped to the 10 range with phlebotomy and fluids; it normalized to the 6 range. Her hemoglobin started at 14 and with the same processes dropped to a low of 10.9; there were no signs of bleeding. The MCVs were unremarkable. Differentials were unremarkable. Liver functions actually improved from alkaline phos at 303, AST of 47 (felt to be secondary to her Tegretol therapy) and recall lipase, lactic acid, procalcitonin and amylase were all normal. GFR started at 70 and remained quite high. DISCHARGE ASSESSMENT/PROBLEM LIST (CHANGED FROM ADMISSION): # Right middle, right lower lobe infiltrates - probable pneumonia # Fatigue # Dizziness # Anemia with IV fluids and phlebotomy (no signs of bleeding) - hemoglobin 10.9 # Liver enzyme elevation; chronic and usually related to Tegretol therapy PLAN: 1. Discharge 2. Medications: a) ProAir metered dose inhaler two puffs four times a day, #1, no refill b) Tylenol 650 every four hours as needed OTC c) Azithromuycin 250 mg #1, no refill d) Tegretol 200 mg every 12 hours e) Omnicef 300 mg twice a day #20, no refill f) Sinequan 50 to 100 mg at bedtime g) Vasotec 5 mg one a day h) Neurontin 600 mg four times a day i) Relafen 500 mg twice a day j) Medrol Dosepak #1 no refill (all medicines new are called to [facility]) 3. Diet a) Healthy heart 4. a) Gradually increase as able being no work until seen 5. Followup with Dr. Rocha in 5 to 7 days - patient to call for appointment PROGNOSIS: Guarded CONDITION: Stable - improved MTDD
== END 2016-06-15 17:34 | disposition home or self-care (01) | DRG 195 ==
LOC: ED 18:43 → MEDSURG B 21:02
PROVIDERS: ADMIT Family Medicine; ATTEND Family Medicine
DX: J18.1 Lobar pneumonia, unspecified organism (principal); R53.83 Other fatigue; R42 Dizziness and giddiness; D64.9 Anemia, unspecified; R74.8 Abnormal levels of other serum enzymes; R10.13 Epigastric pain; R11.2 Nausea with vomiting, unspecified; G50.0 Trigeminal neuralgia; R29.810 Facial weakness; R20.3 Hyperesthesia; Z79.899 Other long term (current) drug therapy; Z77.22 Contact with and (suspected) exposure to environmental tobacco smoke (acute) (chronic)
CPT/HCPCS: 36415; 80053; 81001; 82150; 82550; 82553; 82803; 83605; 83690; 84145; 84484; 85025; 87040; 87338; 87804; 93005; 93010; 94640; 96365; 96375; 99284

== ENCOUNTER 2016-07-01 14:57 | Outpatient (RCR) ==
--- NOTE | 2016-07-05 16:30 | RS.OPPTEV2 ---
Date of Note: 07/01/16 Visit #: 1 Date of Evaluation: 07/01/16 Payer Source: MEDICARE Treatment Diagnosis: Gait difficulty, recent falls History of Condition/Mechanism of Injury:: Patient reports she has had 4 falls in the last month. She is unsure why she falls. Prior Level of Function.....Patient was independent with: ADL's, Self Care, Caregiving, Ambulation/Mobility, Community Integration/Access Functional Limitations: Ambulation, Community Access/Integration Current Subjective/complaints:: Patient reports she has had recent falls. States she has noticed weakness in her legs. States she does catch her feet on the floor when she walks. States she occasionally has dizziness, possibly due to getting up too fast. States she has neuropathy in the LE's. Reports double vision at times. States she was hospitalized for pneumonia 2-3 weeks ago. Medical History Medical History: Hypertension, Diabetes Medical History Comments:: Neuropathy Surgical History Comments:: Left Trigeminal ablation 2005, Left suboccipital crainectomy-trigeminal microvascular decompression 2010, Left percutaneous rhizotomy trigeminal 2010. Patient's Goals: Her goal is to avoid falls. Functional Outcome Measure Tinetti: 27 () Dynamic Gait: 20 (20/24=17% impairment) - G Codes & Severity Modifier G Codes & Modifier: Mob current CI. Mob goal CH Source of G Code score: Dynamic gait index Gait - Gait Pattern Gait Comments: Demonstrates a narrow base of support while ambulating, but no other gait deviations are noted with natural gait speed, without distractions. General Range of Motion: Bilateral LE AROM is WFL's. Muscle Strength: Right hip strength 4/5 flexion,abd, ER, & IR Left hip 4 to 4+/ 5 throughout. Bilateral quads and HS 4+/5, bilateral ankles 4 to 4+/5. Sensation - Sensation Comments: Reports sensation to light touch and deep pressure is intact. States she has burning in her LE's. Balance - Sitting Balance Static Sitting Balance: Good Dynamic Sitting Balance: Good - Standing Balance Static Standing Balance: Good Dynamic Standing Balance: Good - Comments Balance Assessment Comments: During assessment to score Dynamic Gait index, patient demonstrates difficulty maintaining straight path with ambulation during horizontal head turns. Coordination - Tests Bilateral Toe Tapping: Normal/Intact Interventions - Exercise/Activities/Manual Therapy Exercises/Activities: NA Manual Therapy: NA - Charges Total Direct Minutes: 50 mins Total Treatment Time: 50 mins Procedures billed for this date of service:: PIERCEAL medium Assessment Assessment: Patient presents to therapy with a diagnosis of gait difficulty and recent falls. She demonstrates general weakness of bilateral hips, right weaker than the left. Exhibits difficulty with maintain a steady gait with head turns. She will benefit from LE strengthening, balance activities, and habituation exercises to improve her safety with ambulation and decrease her risk for falls. Patient Education: Education of diagnosis, Education of Plan of Care Rehab Potential: Good Short Term Goals Goal #1: Patient independent in basic HEP. Goal to be met by: 07/19/16 Goal #2: Right hip strength 4+/5. Goal to be met by: 07/19/16 Goal #3: Pt will demo. minimal to no gait disturbance with horizontal head turns. Goal to be met by: 07/19/16 Long-Term Goals Goal #1: Pt knows HEP and to cont. ex's to maintain functional level at D/C. Goal to be met by: 08/09/16 Goal #2: Score on Dynamic Gait Index improved to 0% impairment. Goal to be met by: 08/09/16 Goal #3: Pt to report no falls. Goal to be met by: 08/09/16 Plan - Treatment to be Provided Procedures: Therapeutic Exercises, Therapeutic Activity, Gait Training, Neuromuscular Rehab, Vestibular Rehab, Patient Education Modalities: No Modalities - Treatment Plan Frequency: 2-3 X week Duration: 4 weeks ORDER # VISITS AND/OR THROUGH DATE: 08/09/16 - Treatment Code (1) Gait abnormality Comments: R26.9 (2) Muscle weakness (generalized) Comments: M62.81 LE weakness
== END 2016-07-04 ==
PROVIDERS: ATTEND Family Medicine
DX: R26.9 Unspecified abnormalities of gait and mobility (principal)

== ENCOUNTER 2016-07-15 09:02 | Outpatient (CLI) ==
--- NOTE | 2016-07-15 10:22 | DI ---
EXAM: Chest two view, frontal and lateral views. HISTORY: Pneumonia. COMPARISON: 06/15/2016. FINDINGS: The heart size is normal. There is no pulmonary vascular congestion. Linear opacities s een in the lateral aspect of the right midlung with improved aeration in the right lung consolidatio n since the prior study. Otherwise, the lungs are clear. No pleural effusion or pneumothorax is se en. No acute osseous abnormality identified. Clips seen in the upper abdomen. IMPRESSION: Improved aeration in the right lung with small focus of subsegmental atelectasis in the right mid lori ng persisting.
== END 2016-07-15 09:03 | disposition home or self-care (01) ==
LOC: RAD 09:02
PROVIDERS: ATTEND Family Medicine
DX: J18.9 Pneumonia, unspecified organism (principal); R26.9 Unspecified abnormalities of gait and mobility

== ENCOUNTER 2016-08-03 08:15 | Outpatient (RCR) ==
--- NOTE | 2016-07-08 11:01 | RS.OPPTDN ---
Subjective Date of Note: 07/06/16 Visit #: 2 Date of Evaluation: 07/01/16 Payer Source: MEDICARE Treatment Diagnosis: Gait difficulty, recent falls Current Subjective/complaints:: Patient says she notices she walks sometimes with the R foot pointed down and feet close together. She says the R knee has had surgery, but seems stronger at times than the L. She says she finds it difficult for her to bend or squat down and then rising up. Pain Assessment - Pain Description Pain Location: low back. (intermittently) Interventions - Exercise/Activities/Manual Therapy Exercises/Activities: Patient receives passive bilateral low back stretching related to c/o's pain. SKTC, HS, Piriformis, and lower trunk rotation bilaterally x 3. Heel cord stretching x 3. She begins trunk stability and bilateral LE strengthening: QS, SAQ 1 1/2#, DF with red tband, alternate LE lift with 1 1/2#, isometric hip flexion, abd, add, and bridging. All 2x10. Patient stands to perform: hip abd, heel raises, marching x 10. Total minutes of Exercise: 38 Manual Therapy: na - Charges Total Direct Minutes: 38 Total Treatment Time: 38 Procedures billed for this date of service:: ex3 Assessment: Patient demo tightness to bilateral HS and mild pain today to the LB , which also may affect gait. She ambulates independently with narrow MULUGETA. She appeared to chandan all therex well with general muscle fatigue. She maintained bal with standing therex and prolonged standing with conversation following therex. She should benefit from further strengthening and bal activities. Patient Education: Education of diagnosis, Body/Joint mechanics, Home Exercise Program, Home Safety, Activity Modification, Education of Plan of Care Patient demonstrates compliance with HEP?: Yes Short Term Goals Goal #1: Patient to be independent with basic HEP Goal to be met by: 07/19/16 Progress towards Goal:: Progressing Goal #2: R hip strength to 4+/5 Goal to be met by: 07/19/16 Goal #3: Patient will demo min to no gait disturbance with horizontal head turns Goal to be met by: 07/19/16 Hair And Makeup Designer Goals Goal #1: Patient knows HEP and to cont ex's to maintain functional level @ D/c Goal to be met by: 08/09/16 Goal #2: Score on dynamic GT Index improved to 0% impairment Goal to be met by: 08/09/16 Goal #3: Patient to report no falls Goal to be met by: 08/09/16 Progress towards goal: Progressing Plan PLAN OF CARE EXPIRES ON:: 08/09/16 ORDER # VISITS AND/OR THROUGH DATE: 2-3x 4 or 08/09/16 PLAN: Progress Exercises
--- NOTE | 2016-07-08 11:08 | RS.OPPTDN ---
Subjective Date of Note: 07/08/16 Visit #: 3 Date of Evaluation: 07/01/16 Payer Source: MEDICARE Treatment Diagnosis: Gait difficulty, recent falls Current Subjective/complaints:: Patient says she is hurting in her back, but attributes it to weather. She says her legs are tired with exercise, but motivated to continue. Pain Assessment - Pain Description Pain Location: low back. (intermittently) Pain Description: Aching Pain Description: fatigue in legs Interventions - Exercise/Activities/Manual Therapy Exercises/Activities: Patient receives passive bilateral low back stretching related to c/o's pain. SKTC, HS, Piriformis, and lower trunk rotation bilaterally x 3. Heel cord stretching x 3. She begins trunk stability and bilateral LE strengthening: QS, SAQ 1 1/2#, DF with red tband, alternate LE lift with 1 1/2#, isometric hip flexion, abd, add, and bridging. Ham curls red tband, trunk rotation and scap retraction with red tband. All 2x10. Patient begins on the stationary bike x 5 mins for/retro with cues for switch position and initiation. Total minutes of Exercise: 38 Manual Therapy: na - Charges Total Direct Minutes: 38 Total Treatment Time: 38 Procedures billed for this date of service:: ex3 Assessment: Patient with mild muscle fatigue with therex today, but able to chandan well otherwise. She should progress well with further strengthening and bal activities. Patient Education: Education of diagnosis, Body/Joint mechanics, Home Exercise Program, Home Safety, Activity Modification, Education of Plan of Care Patient demonstrates compliance with HEP?: Yes Short Term Goals Goal #1: Patient to be independent with basic HEP Goal to be met by: 07/19/16 Progress towards Goal:: Progressing Goal #2: R hip strength to 4+/5 Goal to be met by: 07/19/16 Goal #3: Patient will demo min to no gait disturbance with horizontal head turns Goal to be met by: 07/19/16 Long-Term Goals Goal #1: Patient knows HEP and to cont ex's to maintain functional level @ D/c Goal to be met by: 08/09/16 Goal #2: Score on dynamic GT Index improved to 0% impairment Goal to be met by: 08/09/16 Goal #3: Patient to report no falls Goal to be met by: 06/05/17 Progress towards goal: Progressing Plan PLAN OF CARE EXPIRES ON:: 08/09/16 ORDER # VISITS AND/OR THROUGH DATE: 2-3x 4 or 08/09/16 PLAN: Progress Exercises
--- NOTE | 2016-07-12 10:24 | RS.OPPTDN ---
Subjective Date of Note: 07/12/16 Visit #: 4 Date of Evaluation: 07/01/16 Payer Source: MEDICARE Treatment Diagnosis: Gait difficulty, recent falls Current Subjective/complaints:: Patient says she did have some soreness to her LE's and fatigue following last session. She states she had a very busy weekend as well. Pain Assessment - Pain Description Pain Location: low back. (intermittently) Pain Description: Aching Pain Description: fatigue in legs Interventions - Exercise/Activities/Manual Therapy Exercises/Activities: Patient receives passive bilateral low back stretching related to c/o's pain. SKTC, HS, Piriformis, and lower trunk rotation bilaterally x 3. Heel cord stretching x 3. She continues with trunk stability and bilateral LE strengthening: QS, SAQ increased to 2#, DF green tband, alternate LE lift with 2#, isometric hip flexion, abd, add, and bridging. Ham curls red tband, trunk rotation and scap retraction with green tband. All 2x10. Patient stands for hip abd, marching, heel raises, minisquats, side stepping x 10 reps. Total minutes of Exercise: 40 Manual Therapy: na - Charges Total Direct Minutes: 40 Total Treatment Time: 40 Procedures billed for this date of service:: ex3 Assessment: Patient progressing with weights and standing therex without LOB. SLight fatigue noted generally to LE's with mat exercises. Flexibility (HS) improving with stretching bilaterally. Patient Education: Education of diagnosis, Body/Joint mechanics, Home Exercise Program, Home Safety, Activity Modification, Education of Plan of Care Patient demonstrates compliance with HEP?: Yes Short Term Goals Goal #1: Patient to be independent with basic HEP Goal to be met by: 07/19/16 Progress towards Goal:: Progressing Goal #2: R hip strength to 4+/5 Goal to be met by: 07/19/16 Progress towards Goal:: Progressing Goal #3: Patient will demo min to no gait disturbance with horizontal head turns Goal to be met by: 07/19/16 Community Living Coach Goals Goal #1: Patient knows HEP and to cont ex's to maintain functional level @ D/c Goal to be met by: 08/09/16 Goal #2: Score on dynamic GT Index improved to 0% impairment Goal to be met by: 08/09/16 Goal #3: Patient to report no falls Goal to be met by: 08/09/16 Progress towards goal: Progressing Plan PLAN OF CARE EXPIRES ON:: 08/09/16 ORDER # VISITS AND/OR THROUGH DATE: 2-3x 4 or 08/09/16 PLAN: Progress Exercises
--- NOTE | 2016-07-15 09:47 | RS.OPPTDN ---
Subjective Date of Note: 07/15/16 Visit #: 5 Date of Evaluation: 07/01/16 Payer Source: MEDICARE Treatment Diagnosis: Gait difficulty, recent falls Current Subjective/complaints:: Patient says her is in the hospital and she has been fatigued. She says she thinks her legs are gaining strength and she is mostly dizzy with walking after sitting for prolonged amount of time. Pain Assessment - Pain Description Pain Location: low back. (intermittently) Pain Description: Aching Pain Description: fatigue in legs Interventions - Exercise/Activities/Manual Therapy Exercises/Activities: Patient receives passive bilateral low back stretching related to c/o's pain. SKTC, HS, Piriformis, and lower trunk rotation bilaterally x 3. Heel cord stretching x 3. She continues with trunk stability and bilateral LE strengthening: QS, SAQ increased to 2 1/2#, DF green tband, alternate LE lift with 2#, isometric hip flexion, abd, add, and bridging. Ham curls red tband, trunk rotation and scap retraction with green tband. All 2x10. Patient stands for hip abd, marching, heel raises, minisquats, side stepping x 10 reps. Patient stands for head turns L to R, then closing eyes and turns, then open eyes and head turns while ambulating x 10 ft. She then, turns in complete [place] x 3. Total minutes of Exercise: 45 Manual Therapy: na - Charges Total Direct Minutes: 45 Total Treatment Time: 45 Procedures billed for this date of service:: ex2, neuro1 Assessment: Patient chandan all routine therex well with slight fatigue. She is able to maintain bal with standing therex, but once she ambulates with head turns, she begins to lose bal, but is able to correct herself. She has no issues with head turns alone. Patient Education: Education of diagnosis, Body/Joint mechanics, Home Exercise Program, Home Safety, Activity Modification, Education of Plan of Care Patient demonstrates compliance with HEP?: Yes Short Term Goals Goal #1: Patient to be independent with basic HEP Goal to be met by: 07/19/16 Progress towards Goal:: Progressing Goal #2: R hip strength to 4+/5 Goal to be met by: 07/19/16 Progress towards Goal:: Progressing Goal #3: Patient will demo min to no gait disturbance with horizontal head turns Goal to be met by: 07/19/16 Contact Representative Goals Goal #1: Patient knows HEP and to cont ex's to maintain functional level @ D/c Goal to be met by: 08/09/16 Goal #2: Score on dynamic GT Index improved to 0% impairment Goal to be met by: 08/09/16 Goal #3: Patient to report no falls Goal to be met by: 08/09/16 Progress towards goal: Progressing Plan PLAN OF CARE EXPIRES ON:: 08/09/16 ORDER # VISITS AND/OR THROUGH DATE: 2-3x 4 or 08/09/16 PLAN: Progress Exercises
--- NOTE | 2016-07-20 09:30 | RS.OPPTDN ---
Subjective Date of Note: 07/20/16 Visit #: 6 Date of Evaluation: 07/01/16 Payer Source: MEDICARE Treatment Diagnosis: Gait difficulty, recent falls Current Subjective/complaints:: Patient says she is feeling better, but has been fatigued over the weekend taking care of her and may be returning to the hospital. Pain Assessment - Pain Description Pain Location: low back. (intermittently) Pain Description: Aching Pain Description: fatigue in legs Interventions - Exercise/Activities/Manual Therapy Exercises/Activities: Patient receives continued passive bilateral low back stretching: SKTC, HS, Piriformis, and lower trunk rotation bilaterally x 3. Heel cord stretching x 3. She continues with trunk stability and bilateral LE strengthening: QS, SAQ 2 1/2#, DF green tband, alternate LE lift with 2#, isometric hip flexion, abd, add, and bridging. Ham curls red tband, trunk rotation and scap retraction with green tband. All 2x10. Stationary bike x 5 mins for/retro. Patient stands for head turns L to R, then closing eyes and turns, then open eyes and head turns while ambulating x 10 ft. Total minutes of Exercise: 38 Manual Therapy: na - Charges Total Direct Minutes: 38 Total Treatment Time: 38 Procedures billed for this date of service:: ex3 Assessment: Patient performing therex well and denies dizziness today. Patient Education: Education of diagnosis, Body/Joint mechanics, Home Exercise Program, Home Safety, Activity Modification, Education of Plan of Care Patient demonstrates compliance with HEP?: Yes Short Term Goals Goal #1: Patient to be independent with basic HEP Goal to be met by: 07/19/16 Progress towards Goal:: Progressing Goal #2: R hip strength to 4+/5 Goal to be met by: 07/19/16 Progress towards Goal:: Progressing Goal #3: Patient will demo min to no gait disturbance with horizontal head turns Goal to be met by: 07/19/16 Heat Treat Puller Goals Goal #1: Patient knows HEP and to cont ex's to maintain functional level @ D/c Goal to be met by: 08/09/16 Goal #2: Score on dynamic GT Index improved to 0% impairment Goal to be met by: 08/09/16 Goal #3: Patient to report no falls Goal to be met by: 08/09/16 Progress towards goal: Progressing Plan PLAN OF CARE EXPIRES ON:: 08/09/16 ORDER # VISITS AND/OR THROUGH DATE: 2-3x 4 or 08/09/16 PLAN: Progress Exercises
--- NOTE | 2016-07-22 09:39 | RS.OPPTDN ---
Subjective Date of Note: 07/22/16 Visit #: 7 Date of Evaluation: 07/01/16 Payer Source: MEDICARE Treatment Diagnosis: Gait difficulty, recent falls Current Subjective/complaints:: Patient says she turned around quickly and fell yesterday. Says she has a bad habit of walking or doing things too fast. She says she feels stronger, but still has trouble with quick turns. Denies she is hurt from her fall. Pain Assessment - Pain Description Pain Location: low back. (intermittently) Pain Description: Aching Pain Description: fatigue in legs Interventions - Exercise/Activities/Manual Therapy Exercises/Activities: Patient receives continued passive bilateral low back stretching: SKTC, HS, Piriformis, and lower trunk rotation bilaterally x 3. Heel cord stretching x 3. She continues with trunk stability and bilateral LE strengthening: QS, SAQ 2 1/2#, DF green tband, alternate LE lift with 2#, isometric hip flexion, abd, add, lower ab lift, and bridging. Ham curls red tband, trunk rotation and scap retraction with green tband. All 2x10. Standing at rail performing marching, heel raises, 2/10. Neuro (10 mins) Patient stands for head turns L to R and up/down, then closing eyes and turns, then open eyes and head turns while ambulating x 10 ft. Sitting on [place] ball for 1# wand for bilateral shoulder flexion, head turns with eyes closed and open , steps for 360 degrees for clockwise and counter clockwise. Total minutes of Exercise: EX32, Neuro 10 Manual Therapy: na - Charges Total Direct Minutes: 42 Total Treatment Time: 42 Procedures billed for this date of service:: ex2, neuro1 Assessment: Patient had one recent fall yesterday in which she did not feel the need for medical help. This occured while turning quickly and reaching back to the L. While performing 360 degree turn, she had difficulty beginning to the L , none leading to the R. Patient Education: Education of diagnosis, Body/Joint mechanics, Home Exercise Program, Home Safety, Activity Modification, Education of Plan of Care Patient demonstrates compliance with HEP?: Yes Short Term Goals Goal #1: Patient to be independent with basic HEP Goal to be met by: 07/19/16 Progress towards Goal:: Progressing Goal #2: R hip strength to 4+/5 Goal to be met by: 07/19/16 Progress towards Goal:: Progressing Goal #3: Patient will demo min to no gait disturbance with horizontal head turns Goal to be met by: 07/19/16 Progress towards Goal:: Progressing Rn Gastroenterology Goals Goal #1: Patient knows HEP and to cont ex's to maintain functional level @ D/c Goal to be met by: 08/09/16 Goal #2: Score on dynamic GT Index improved to 0% impairment Goal to be met by: 08/09/16 Goal #3: Patient to report no falls Goal to be met by: 08/09/16 Progress towards goal: Progressing Plan PLAN OF CARE EXPIRES ON:: 08/09/16 ORDER # VISITS AND/OR THROUGH DATE: 2-3x 4 or 08/09/16 PLAN: Progress Exercises
--- NOTE | 2016-07-26 09:23 | RS.OPPTDN ---
Subjective Date of Note: 07/26/16 Visit #: 8 Date of Evaluation: 07/01/16 Payer Source: MEDICARE Treatment Diagnosis: Gait difficulty, recent falls Current Subjective/complaints:: Patient says she went to a graduation over the weekend and stood up, turned around, and became dizzy. She says she was not dizzy any other point. Pain Assessment - Pain Description Pain Location: low back. (intermittently) Pain Description: Aching Pain Description: fatigue in legs Interventions - Exercise/Activities/Manual Therapy Exercises/Activities: Patient receives continued passive bilateral low back stretching: SKTC, HS, Piriformis, and lower trunk rotation bilaterally x 3. Heel cord stretching x 3. She continues with trunk stability and bilateral LE strengthening: QS, SAQ increased to 3#, DF green tband, alternate LE lift with increased to 3#, isometric hip flexion, abd, add, lower ab lift, and bridging. Ham curls increased to green tband, trunk rotation and scap retraction with green tband. All 2x10. Standing at rail performing marching, heel raises, 2/ 10. Neuro (10 mins) Patient stands for head turns L to R and up/down, then closing eyes and turns, then open eyes and head turns while ambulating x 10 ft. Sitting on physio ball for increased to 2# wand green tband for scap retraction and bilateral shoulder flexion x 10, head turns with eyes closed and open, Total minutes of Exercise: 40 Manual Therapy: na - Charges Total Direct Minutes: 40 Total Treatment Time: 40 Procedures billed for this date of service:: ex3 Assessment: Patient chandan all progressive strengthening and bal exercises while standing and on physioball. Patient's main source of reproduction of dizziness and LOB is with rising quickly and turning to the L. While turning head and sit to riveting machine operator the department, it intermittently presents. Patient Education: Education of diagnosis, Body/Joint mechanics, Home Exercise Program, Home Safety, Activity Modification, Education of Plan of Care Patient demonstrates compliance with HEP?: Yes Short Term Goals Goal #1: Patient to be independent with basic HEP Goal to be met by: 07/19/16 Progress towards Goal:: Progressing Goal #2: R hip strength to 4+/5 Goal to be met by: 07/19/16 Progress towards Goal:: Progressing Goal #3: Patient will demo min to no gait disturbance with horizontal head turns Goal to be met by: 07/19/16 Progress towards Goal:: Progressing Otr Owner Operator Truck Driver Goals Goal #1: Patient knows HEP and to cont ex's to maintain functional level @ D/c Goal to be met by: 08/09/16 Progress towards goal: Progressing Goal #2: Score on dynamic GT Index improved to 0% impairment Goal to be met by: 08/09/16 Comments: reassess next week Goal #3: Patient to report no falls Goal to be met by: 08/09/16 Progress towards goal: Progressing Plan PLAN OF CARE EXPIRES ON:: 08/09/16 ORDER # VISITS AND/OR THROUGH DATE: 2-3x 4 or 08/09/16 PLAN: Progress Exercises
--- NOTE | 2016-07-28 09:36 | RS.OPPTDN ---
Subjective Date of Note: 07/28/16 Visit #: 9 Date of Evaluation: 07/01/16 Payer Source: MEDICARE Treatment Diagnosis: Gait difficulty, recent falls Current Subjective/complaints:: Patient c/o L LE "nerve" pain. She says pain is from her L hip to the lower lalf of calf. She says she has been walking around the hospital as her is an inpatient and up talking to the MD. She says it is better when she sits. Pain Assessment - Pain Description Pain Location: Elevated pain today. L LE from hip to near ankle laterally. Pain Description: Aching Pain Description: fatigue in legs Interventions - Exercise/Activities/Manual Therapy Exercises/Activities: Patient receives continued passive bilateral low back stretching: SKTC, HS, Piriformis, and lower trunk rotation bilaterally x 3. Heel cord stretching x 3. She continues with trunk stability and bilateral LE strengthening: QS, SAQ increased to 3#, DF green tband, alternate LE lift with increased to 3#, isometric hip flexion, abd, add, lower ab lift, and bridging. Standing at rail performing marching, heel raises, 2/10. Neuro (15 mins) Patient stands for head turns L to R and up/down, then closing eyes and turns, then open eyes and head turns while ambulating x 10 ft. Sitting on physio ball for 2# wand green tband for scap retraction and bilateral shoulder flexion, and alternate LE lift with 1# wand, head turns with eyes closed. Ambulating backwards several times x ~5-7 steps, backwards also with prompts for abrupt stops. Stepping to the L and posteriorally to supervisor picking crew and "drop" 1 1/2# cuff weight in chair. Ended with bike x 5 mins for/retro. Total minutes of Exercise: 32 mins ex, 15 mins neuro Manual Therapy: na - Charges Total Direct Minutes: 47 Total Treatment Time: 47 Procedures billed for this date of service:: neuro 1, ex2 Assessment: Patient c/o L LE pain today (laterally and extends near total length ) with increased amb. Patient began to have LOB with standing and turning back and to the L. She did not require assistance, but was CGA through these activities. She also, had difficulty with walking backwards with abrupt stops. Leg pain decreased by the end of session. Patient Education: Education of diagnosis, Body/Joint mechanics, Home Exercise Program, Home Safety, Activity Modification, Education of Plan of Care Patient demonstrates compliance with HEP?: Yes Short Term Goals Goal #1: Patient to be independent with basic HEP Goal to be met by: 07/19/16 Progress towards Goal:: Progressing Goal #2: R hip strength to 4+/5 Goal to be met by: 07/19/16 Progress towards Goal:: Progressing Goal #3: Patient will demo min to no gait disturbance with horizontal head turns Goal to be met by: 07/19/16 Progress towards Goal:: Progressing Penitentiary Goals Goal #1: Patient knows HEP and to cont ex's to maintain functional level @ D/c Goal to be met by: 08/09/16 Progress towards goal: Progressing Goal #2: Score on dynamic GT Index improved to 0% impairment Goal to be met by: 08/09/16 Comments: REassess next week Goal #3: Patient to report no falls Goal to be met by: 08/09/16 Progress towards goal: Progressing Plan PLAN OF CARE EXPIRES ON:: 08/09/16 ORDER # VISITS AND/OR THROUGH DATE: 2-3x 4 or 08/09/16 PLAN: Progress Exercises
--- NOTE | 2016-08-03 10:52 | RS.OPPTDN ---
Subjective Date of Note: 08/03/16 Visit #: 10 Date of Evaluation: 07/01/16 Payer Source: MEDICARE Treatment Diagnosis: Gait difficulty, recent falls Current Subjective/complaints:: Patient says she has not had much sleep. She has been taking care of her as he was discharged from the hospital. She says she is dizzy at times with standing up and seems to be less with walking and head turns. Pain Assessment - Pain Description Pain Location: Elevated pain today. L LE from hip to near ankle laterally. Pain Description: Aching Pain Description: fatigue in legs Interventions - Exercise/Activities/Manual Therapy Exercises/Activities: Patient receives continued passive bilateral low back stretching: SKTC, HS, Piriformis, and lower trunk rotation bilaterally x 3. Heel cord stretching x 3. She continues with trunk stability and bilateral LE strengthening: QS, SAQ increased to 3#, DF green tband, alternate LE lift with increased to 3#, lower ab lift, and bridging. Neuro (15 mins) Standing at rail on medium therapy foam performing marching, heel raises, weight shifting 2/10. On physioball: 3# wand for bilateral shoulder flexion and red tband for scap retraction 2/10. Patient stands for head turns L to R and up/down, then closing eyes and turns, then open eyes and head turns while ambulating x 10 ft. Sit to stand: 2x5 at handrail, but not relying on it for transfers. Total minutes of Exercise: 45 Manual Therapy: na - Objective Findings Observations,measurements,etc.: Dynamic Balance Scale= 22/24 - Charges Total Direct Minutes: 45 Total Treatment Time: 45 Procedures billed for this date of service:: neuro 1, ex2 Assessment: Patient continues with general fatigue from caring for her at this point. She has had intermittent dizziness with sit to stand and with abrupt stops and turning behind her and to the L. With performing simulated activities to help decrease her unsteadiness. Patient Education: Education of diagnosis, Body/Joint mechanics, Home Exercise Program, Home Safety, Activity Modification, Education of Plan of Care Patient demonstrates compliance with HEP?: Yes Short Term Goals Goal #1: Patient to be independent with basic HEP Goal to be met by: 07/19/16 Progress towards Goal:: Progressing Goal #2: R hip strength to 4+/5 Goal to be met by: 07/19/16 Progress towards Goal:: Progressing Goal #3: Patient will demo min to no gait disturbance with horizontal head turns Goal to be met by: 07/19/16 Progress towards Goal:: Progressing Custodial Goals Goal #1: Patient knows HEP and to cont ex's to maintain functional level @ D/c Goal to be met by: 08/09/16 Progress towards goal: Progressing Goal #2: Score on dynamic GT Index improved to 0% impairment Goal to be met by: 08/09/16 Goal #3: Patient to report no falls Goal to be met by: 08/09/16 Progress towards goal: Progressing Plan PLAN OF CARE EXPIRES ON:: 07/16/16 ORDER # VISITS AND/OR THROUGH DATE: 2-3x 4 or 08/09/16 PLAN: Progress Exercises (x 2 more sessions.)
--- NOTE | 2016-08-09 13:37 | RS.PTSUM ---
Progress Note/Summary Date of Note: 08/06/16 Date of Evaluation: 07/01/16 Number of Visits: 10 Reporting Period for this Progress Note: 07/01/16 through 08/03/16 Current Complaints/Gains: Patient says she feels stronger and slightly less dizzy. She says she has been quite fatigued with taking care of her . Objective Measurements/Presentation: Mrs. Packer shows improvement with abrupt stops during ambulation and with horizontal head turns with forward ambulation. She demonstrates significant improvement with hamstring length and general strength of the LE's. She exhbits improved ability to maintain balance during balance activities/exercises compared to her initial visits. G Codes: Mob current CI. Mob Goal CH Source of G Code Score: Dynamic Gait Index 22/24=8% impairment. - Short Term Goals Goal #1: Patient to be independent with basic HEP Goal to be met by: 07/19/16 Progress towards Goal:: Progressing Goal #2: R hip strength to 4+/5 Goal to be met by: 07/19/16 Progress towards Goal:: Progressing Goal #3: Patient will demo min to no gait disturbance with horizontal head turns Goal to be met by: 07/19/16 Progress towards Goal:: Progressing - Penitentiary Goals Goal #1: Patient knows HEP and to cont ex's to maintain functional level @ D/c Goal to be met by: 08/09/16 Progress towards goal: Progressing Goal #2: Score on dynamic GT Index improved to 0% impairment Goal to be met by: 08/09/16 Progress towards goal: Progressing Goal #3: Patient to report no falls Goal to be met by: 08/09/16 Progress towards goal: Progressing - Assessment Assessment of Improvement/Progress: Mrs. Packer demonstrates improved score on the Dynamic Gait index. She demonstrates improved tolerance for head movements and improved balance reactions with ambulation. - Plan Plan: Continue Plan of Care Comments: Will see for 1-2 additions visits for progressive HEP instruction and strengthening/balance activities. PLAN OF CARE EXPIRES ON:: 08/09/16 ORDER # VISITS AND/OR THROUGH DATE: 2-3x 4 or 08/09/16
== END 2016-08-04 ==
PROVIDERS: ATTEND Family Medicine
DX: R26.9 Unspecified abnormalities of gait and mobility (principal)

== ENCOUNTER 2016-08-09 08:15 | Outpatient (RCR) ==
--- NOTE | 2016-08-05 10:23 | RS.OPPTDN ---
Subjective Date of Note: 08/05/16 Visit #: 11 Date of Evaluation: 07/01/16 Payer Source: MEDICARE Treatment Diagnosis: Gait difficulty, recent falls Current Subjective/complaints:: Patient states that she is unsure if her dizziness is any better. She says her legs are stronger, but says she feels her problem is walking too fast and that she needs to slow down. Pain Assessment - Pain Description Pain Location: c/o bilateral hip pain Pain Description: fatigue in hips Interventions - Exercise/Activities/Manual Therapy Exercises/Activities: Patient receives continued passive bilateral low back stretching: SKTC, HS, Piriformis, and lower trunk rotation bilaterally x 3. Heel cord stretching x 3. She continues with trunk stability and bilateral LE strengthening: SAQ increased to 3#, DF green tband, alternate LE lift with increased to 3#, lower ab lift, and bridging. Neuro (23 mins) Standing at rail on medium therapy foam performing marching, heel raises, weight shifting 2/10. Patient walks backwards with abrupt stops and forward with head turns and up/ down. She stands for eyes open for head turns and then with closed. She walks forward and then turns to the L and posterior and places a 1# weight down on chair. Sit to stand: 2x5 at handrail, but not relying on it for transfers. Single leg stance on L, then R with 1 BLANKET INSPECTOR on rail. She is unable to maintain bal hands free more than 3 sec's. Total minutes of Exercise: ex: 20, neuro: 23 Manual Therapy: na - Charges Total Direct Minutes: 43 Total Treatment Time: 43 Procedures billed for this date of service:: ex1, neuro2 Assessment: Patient has made progress with general strengthening to LE's and trunk stability, but maintains difficulty with forward ambulation and horizontal head turns. No to only slight imbalance seen with vertical head turns. No imbalance with horizontal and standing with eyes open or closed, which is better than initial treatments. She has a quick amb speed, which she believes is her problem. We did work on slower speed walking and re-try several of the dynamic activities, which did decrease in occurance. She has one session remaining. She also has been quite fatigued with caring for her . Patient Education: Education of diagnosis, Body/Joint mechanics, Home Exercise Program, Home Safety, Activity Modification, Education of Plan of Care Patient demonstrates compliance with HEP?: Yes Short Term Goals Goal #1: Patient to be independent with basic HEP Goal to be met by: 07/19/16 Progress towards Goal:: Progressing Goal #2: R hip strength to 4+/5 Goal to be met by: 07/19/16 Progress towards Goal:: Progressing Goal #3: Patient will demo min to no gait disturbance with horizontal head turns Goal to be met by: 07/19/16 Progress towards Goal:: Progressing Pocket Maker Goals Goal #1: Patient knows HEP and to cont ex's to maintain functional level @ D/c Goal to be met by: 08/09/16 Progress towards goal: Progressing Goal #2: Score on dynamic GT Index improved to 0% impairment Goal to be met by: 08/09/16 Goal #3: Patient to report no falls Goal to be met by: 08/09/16 Progress towards goal: Progressing Plan PLAN OF CARE EXPIRES ON:: 08/09/16 ORDER # VISITS AND/OR THROUGH DATE: 2-3x 4 or 08/09/16 PLAN: Plan for Discharge
--- NOTE | 2016-08-09 10:33 | RS.OPPTDN ---
Subjective Date of Note: 08/09/16 Visit #: 12 Date of Evaluation: 07/01/16 Payer Source: MEDICARE Treatment Diagnosis: Gait difficulty, recent falls Current Subjective/complaints:: Patient c/o hip and backache today related to damp weather. She denies any falls currently. She says she is not dizzy today and is doing well with all HEP and departmental exercises except still having some problems with turning around quickly. Pain Assessment - Pain Description Pain Location: c/o bilateral hip pain and back Pain Description: fatigue in hips Interventions - Exercise/Activities/Manual Therapy Exercises/Activities: Natalia begins on stationary bike x 7 mins for/retro. EX: 22 mins. Patient receives continued passive bilateral low back stretching: SKTC, HS, Piriformis, and lower trunk rotation bilaterally x 3. Heel cord stretching x 3. She continues with trunk stability and bilateral LE strengthening: SAQ increased to 3#, DF green tband, alternate LE lift with increased to 3#, lower ab lift, and bridging. SLR, QS, 2x10. Neuro (18 mins) Standing at rail on medium therapy foam performing marching, heel raises, weight shifting 2/10. Patient walks backwards with abrupt stops and forward with head turns and up/down. She stands for eyes open for head turns and then with closed. Patient sidesteps along railing 2x8 steps. Sit to stand: 2x5 at handrail, but not relying on it for transfers. Gave exercise handouts for her to work on and tband. Manual Therapy: na - Charges Total Direct Minutes: 38 Total Treatment Time: 38 Procedures billed for this date of service:: ex2, neuro Assessment: Patient chandan standing and dynamic bal exercises better as she is maintaining bal with slight stumble once with for amb and horizontal head turns. She was able to recover without assistance. Patient Education: Education of diagnosis, Body/Joint mechanics, Home Exercise Program, Home Safety, Activity Modification, Education of Plan of Care Patient demonstrates compliance with HEP?: Yes Short Term Goals Goal #1: Patient to be independent with basic HEP Goal to be met by: 07/19/16 Progress towards Goal:: Met Goal #2: R hip strength to 4+/5 Goal to be met by: 07/19/16 Progress towards Goal:: Met Goal #3: Patient will demo min to no gait disturbance with horizontal head turns Goal to be met by: 07/19/16 Progress towards Goal:: Progressing Space Controller Goals Goal #1: Patient knows HEP and to cont ex's to maintain functional level @ D/c Goal to be met by: 08/09/16 Progress towards goal: Progressing Goal #2: Score on dynamic GT Index improved to 0% impairment Goal to be met by: 08/09/16 Progress towards goal: Progressing Goal #3: Patient to report no falls Goal to be met by: 08/09/16 Progress towards goal: Partially Met (none at this date or last week) Plan PLAN OF CARE EXPIRES ON:: 08/09/16 ORDER # VISITS AND/OR THROUGH DATE: 2-3x 4 or 08/09/16 PLAN: Plan for Discharge (with HEP)
== END 2016-09-03 ==
PROVIDERS: ATTEND Family Medicine
DX: R26.9 Unspecified abnormalities of gait and mobility (principal)

== ENCOUNTER 2016-10-04 10:51 | Outpatient (CLI) ==
[2016-10-04] MEDS ORDERED: PROLIA SUBCUT STA (11:21)
[2016-10-04 11:24] VITALS: BP 138/84; TEMP 97.3
== END 2016-10-04 10:52 | disposition home or self-care (01) ==
LOC: OPMED 10:51
PROVIDERS: ATTEND Family Medicine
DX: M81.0 Age-related osteoporosis without current pathological fracture (principal)
CPT/HCPCS: 96372

== ENCOUNTER 2016-11-22 07:10 | Day surgery (SDC) ==
[2016-11-22] MEDS ORDERED: DIPRIVAN 20 ML VIAL IVP ONE (09:41)
[2016-11-22] MEDS ORDERED: VERSED ONE (09:41)
[2016-11-22 11:21] VITALS: BP 132/71; TEMP 98.1
--- NOTE | 2016-11-22 15:10 | OP ---
PROCEDURE: COLONOSCOPY TO THE CECUM. ENDOSCOPIST: Linda HUSTON M.D. INDICATION: HISTORY OF POLYPS. INSTRUMENT: [id number]. MEDICATION: PER ANESTHESIA. DATE OF LAST COLONOSCOPY: 2012 PROCEDURE: The patient was positioned for colonoscopy. The digital rectal exam was negative. The colonoscope was inserted through the anus and advanced to the cecum. The cecum was identified using the ileocecal valve and the appendiceal orifice as landmarks. The scope was slowly withdrawn through an adequately prepped colon. Careful inspection made of each colonic segment as the scope was withdrawn in a circumferential fashion. Care is taken to inspect the proximal side of the ileocecal valves, haustral folds, flexures and rectal valves. A few scattered diverticuli are seen in the left colon. The Retroflex exam was otherwise negative. The patient tolerated the procedure well without immediate complication. Withdraw time 11 minutes and 46 seconds. PLAN: 1. Suggest repeat colonoscopy in 5 years [facility]
== END 2016-11-22 11:52 | disposition home or self-care (01) ==
LOC: SURG 07:10
PROVIDERS: ATTEND Internal Medicine Gastroenterology
DX: Z09 Encounter for follow-up examination after completed treatment for conditions other than malignant neoplasm (principal); Z86.010 Personal history of colon polyps; K57.30 Diverticulosis of large intestine without perforation or abscess without bleeding

== ENCOUNTER 2017-01-27 18:41 | Emergency (ER) ==
[2017-01-27 18:48] VITALS: BP 150/90; TEMP 97.9; BMI 25.7
[2017-01-27] MEDS ORDERED: TETANUS DIPHTHERIA TOXOIDS IM ONE (18:59)
[2017-01-27] MEDS ORDERED: LIDOCAINE HCL 1% SDV SUBCUT STA (19:00)
--- NOTE | 2017-01-27 19:34 | CT ---
EXAM: CT head without contrast. HISTORY: Fall with head trauma. PROCEDURE: Contiguous axial CT images of the head without contrast with coronal and sagittal reforma ts. FINDINGS: There is diffuse cerebral atrophy. The ventricles and basal cisterns are normal in size an d configuration. No evidence of mass or midline shift. No intracranial hemorrhage or evidence of la rge vessel infarct. No extra-axial fluid collection. There are minimal chronic small vessel ischemic changes in the white matter. No skull fracture. The paranasal sinuses and mastoid air cells are wel l-aerated. There is surgical hardware in the left suboccipital an M temporal bone region. Impression: No intracranial hemorrhage or skull fracture. Diffuse cerebral atrophy. Minimal chronic small vessel ischemic changes.
--- NOTE | 2017-01-27 19:39 | ED.PDOC ---
General ED Provider: Dr. KRISTY JURADO-ER Chief Complaint: Head Injury Stated Complaint: slipped and fell at home--striking left side of head ? loc-- noted lac left side of scalp Time Seen by Physician: 18:45 Mode of Arrival: Walk-In Information Source: Patient, Family Exam Limitations: No limitations Primary Care Provider: KLA LYONS Nursing and Triage Documentation Reviewed and Agree: Yes Skin Complaint Exam - Laceration/Head/Facial Complaint/Exam Location of Injury: Forehead Mechanism of Injury: Laceration Onset/Duration: 30 min Symptoms Are: Still present Initial Severity: Mild Current Severity: Mild Aggravating: Movement Alleviating: Compression Associated Signs and Symptoms: Denies: Fever, Chills, Erythema, Numbness, Tingling Differential Diagnoses: Laceration Review of Systems - Review Of Systems Constitutional: Reports: No symptoms Eyes: Reports: No symptoms Ears, Nose, Mouth, Throat: Reports: No symptoms Respiratory: Reports: No symptoms Cardiac: Reports: No symptoms GI: Reports: No symptoms : Reports: No symptoms Musculoskeletal: Reports: No symptoms Skin: Reports: No symptoms Neurological: Reports: No symptoms Endocrine: Reports: No symptoms Hematologic/Lymphatic: Reports: No symptoms All Other Systems: Reviewed and Negative Past Medical History - Past Medical History Previously Healthy: No Endocrine: Reports: None Cardiovascular: Reports: None Respiratory: Reports: None Hematological: Reports: None Gastrointestinal: Reports: None Genitourinary: Reports: None Neuro/Psych: Reports: None Musculoskeletal: Reports: None Cancer: Reports: None Last Menstrual Period: hysterectomy - Surgical History General Surgical History: Reports: Hysterectomy, Cholecystectomy, Other ( surgery for the trigeminal neuralgia.) - Family History Family History: Reports: None - Social History Smoking Status: Former smoker Hx Substance Use: No Alcohol Screening: None Lives: With family - Immunizations Tetanus Shot up to Date: Yes Physical Exam - Physical Exam Appearance: Well-appearing, No pain distress, Well-nourished Pain Distress: Mild Eyes: SORAYA, EOMI, Conjunctiva clear ENT: Ears normal, Nose normal, Oropharynx normal Neck: Supple Respiratory: Airway patent Cardiovascular: RRR, Pulses normal, No rub, No murmur GI/: Soft, Nontender, No masses, Bowel sounds normal, No Organomegaly Musculoskeletal: Normal strength, ROM intact, No edema, No calf tenderness Skin: Warm, Dry, Normal color Neurological: Sensation intact, Alert, Oriented Psychiatric: Affect appropriate, Mood appropriate Interpretation - Radiology Interpretation Radiology Interpretation By: Radiologist Radiology Results: Negative Exam Interpreted: CT Scan Procedures - Laceration/Wound Repair No standard instances Wound Description: Linear Wound Length (cm): 3 cm Wound Explored: Clean Wound Irrigated: Yes Wound Prep: Hibiclens Anesthesia: Lidocaine Wound Repaired With: Sutures Suture Size and Type: 4.o prolene Number of Sutures: 5 Layer Closure?: No Sterile Dressing Applied?: Yes Splint Applied?: No Sling Applied?: No Re-Evaluation - Re-Evaluation Time of Re-Evaluation: 19:41 Status: Improved Vital Signs Stable: Yes Pain Level: 1 Appearance: NAD Lungs: Clear Skin: Warm and Dry Neuro: Alert and Oriented X3 CV: RRR Critical Care Note - Critical Care Note Total Time (mins): 0 Course - Course Orders, Labs, Meds: Orders Category Date Time Status Lidocaine HCl/Pf [Lidocaine HCl 1% Sdv] MEDS 01/27/17 19:00 Discontinued 5 ml SUBCUT ONCE STA Tetanus, Diphtheria Tox,Adult [Tetanus Diphtheria MEDS 01/27/17 18:59 Discontinued Toxoids] 0.5 ml IM .ONCE ONE CT CERVICAL SPINE W/O CONTRAST Stat RADS 01/27/17 18:[address] HEAD W/O CONTRAST Stat RADS 01/27/17 18:[address] MAXILLOFACIAL W/O CONTRAST Stat RADS 01/27/17 18:58 Completed Medications Discontinued Medications Generic Name Dose Route Start Last Admin Trade Name Freq PRN Reason Stop Dose Admin Lidocaine HCl 5 ml 01/27/17 19:00 01/27/17 19:19 Lidocaine Hcl 1% Sdv SUBCUT 01/27/17 19:01 5 ml ONCE STA Administration Tetanus/Diphtheria Toxoids 0.5 ml 01/27/17 18:59 01/27/17 19:21 Tetanus Diphtheria Toxoids IM 01/27/17 19:00 0.5 ml .ONCE ONE Administration Vital Signs: Temp Pulse Resp BP Pulse Ox 01/27/17 18:41 97.9 F 72 20 150/90 H 98 Departure - Departure Time of Disposition: 19:41 Disposition: HOME SELF-CARE Discharge Problem: Scalp laceration Qualifiers: Encounter type: initial encounter Qualified Code(s): S01.01XA - Laceration without foreign body of scalp, initial encounter Instructions: Care For Your Stitches (ED), Laceration (ED) Condition: Good Pt referred to PMD for follow-up: Yes Additional Instructions: STITCHES OUT IN 7 DAYS Allergies/Adverse Reactions: Allergies morphine Adverse Reaction (Verified 01/27/17 18:49) HALLUCINATIONS Home Medications: Ambulatory Orders Carbamazepine [Tegretol] 200 mg PO Q12HR 06/12/16 Doxepin HCl 1 - 2 cap PO BEDTIME 06/12/16 Enalapril Maleate 5 mg PO DAILY 06/12/16 Nabumetone [Relafen] 500 mg PO BIDWM 06/12/16 Albuterol Sulfate [Proair Hfa] 2 puff IH Q4H PRN #1 puff 06/15/16 Topiramate [Topamax] 200 mg PO BID 01/27/17 Disposition Discussed With: Patient, Family
--- NOTE | 2017-01-27 19:39 | CT ---
EXAM: CT of the face and orbits without contrast. HISTORY: Fall. PROCEDURE: Contiguous axial CT images of the face and orbits without contrast with coronal and sagit jay reformats. FINDINGS: The bone as are intact with no evidence of fracture. The temporomandibular joints are main tained. The orbits are normal in appearance. The globes are intact and symmetric. There is minimal mucosal thickening in the right maxillary sinus. The mastoid air cells are well-aerated. Impression: No evidence of fracture. Right maxillary sinusitis.
--- NOTE | 2017-01-27 19:43 | CT ---
EXAM: Noncontrast CT of the cervical spine HISTORY: Fall COMPARISON: None available. TECHNIQUE: Noncontrast CT of the cervical spine FINDINGS: The cervical vertebral bodies are normal in height. No cervical spine fractures are identified. No traumatic listhesis is seen. There are prominent degenerative changes of the anterior atlantodental interval. There is mild disc height loss at C4-C5. Mild disc height loss is seen posteriorly at C3- 4, C5-6 and C6-7. There is mild multilevel anterior osteophyte formation. Multilevel facet arthropa thy is seen which is most prominent on the left at C4-5. Small posterior central disc protrusion at seen at C4-5 with narrowing of the spinal canal to 8-9 mm. There is a small disc protrusion at C3-4 w ith narrowing of the spinal canal to approximately 7 - 8 mm.. No abnormal prevertebral soft tissue s welling is identified. IMPRESSION: No evidence of acute osseous injury to the cervical spine. Mild multilevel degenerative disc disease. Multilevel facet arthropathy, most prominent on the left at C4-5. . Small disc protrusions at C3-4 and C4-5.
== END 2017-01-27 19:54 | disposition home or self-care (01) ==
LOC: ED 18:41
DX: S01.01XA Laceration without foreign body of scalp, initial encounter (principal); W01.0XXA Fall on same level from slipping, tripping and stumbling without subsequent striking against object, initial encounter
CPT/HCPCS: 90471; 90714; 99283

== ENCOUNTER 2017-11-04 12:47 | Outpatient (CLI) ==
--- NOTE | 2017-11-04 14:29 | DI ---
EXAM: Three views of the lumbar spine. History: Lower back pain. Comparison: Lumbar spine radiograph 08/29/2015 Findings: Cholecystectomy clips. A [id number] amount of colonic stool. No acute fracture or subluxation of the lumbar spine. Severe disc space narrowing at L1-L2 and moder ate to severe disc space narrowing at L2-L3 progressed compared to the prior study with endplate scle rosis, osteophyte formation and vacuum disc, not. Impression: 1. No acute osseous abnormality of the lumbar spine. 2. Progressive degenerative disc disease
== END 2017-11-04 12:48 | disposition home or self-care (01) ==
LOC: RAD 12:47
PROVIDERS: ATTEND Family Medicine
DX: M54.5 Low back pain (principal)

== ENCOUNTER 2017-11-08 07:56 | Outpatient (CLI) | payer OTHER ==
--- NOTE | 2017-11-08 08:44 | CT ---
EXAM: CT of the abdomen pelvis with contrast History: Bilateral flank pain, left greater than right, history of appendectomy. Comparison: CT abdomen pelvis 06/12/2016. Technique: Multiplanar CT images through the abdomen pelvis were obtained following administration o f IV contrast Findings: Subsegmental atelectasis seen within the lower lungs. No acute osseous abnormalities. De generative changes of the spine with severe degenerative disc disease at L1-L2. Prominent posterior disc osteophyte complexes at L1-L2 and L2-L3. Status post cholecystectomy. No focal liver or splenic lesions. No renal masses. No hydronephrosis . No ureteral calculi. No dilated loops of bowel. Pancreas and adrenal glands are unremarkable. N o bladder wall thickening. No perirectal inflammation. Scattered colonic stool. Previous right ing uinal hernia repair. No free air and no ascites. No inflammatory stranding. No lymphadenopathy. St atus post hysterectomy Impression: No acute intra-abdominal or pelvic process
== END 2017-11-08 07:57 | disposition home or self-care (01) ==
LOC: RAD 07:56
PROVIDERS: ATTEND Family Medicine
DX: R10.9 Unspecified abdominal pain (principal)

== ENCOUNTER 2017-11-17 09:58 | Outpatient (CLI) ==
[2017-11-17 10:20] VITALS: BP 127/70; TEMP 98.6
[2017-11-17] MEDS ORDERED: PROLIA SUBCUT STA (10:22)
== END 2017-11-17 09:59 | disposition home or self-care (01) ==
LOC: OPMED 09:58
PROVIDERS: ATTEND Family Medicine
DX: M81.0 Age-related osteoporosis without current pathological fracture (principal)
CPT/HCPCS: 96372

== ENCOUNTER 2023-08-09 15:46 | Observation (INO) ==
--- NOTE | 2023-08-09 16:10 | ED.PDOC ---
General ED Provider: Dr. SADE BROWN MD Chief Complaint: Weakness Stated Complaint: Patient with a history of generalized weakness, frequent falls, lumbar degenerative disc disease with radiculopathy and balance impairment fell while attempting to move from her couch to wheelchair striking the right side of her chest patient also complains of neck pain lower back pain and right hip pain. Denies loss of consciousness, blurred vision, slurred speech, Time Seen by Provider: 08/09/23 16:00 Mode of Arrival: Ambulance Information Source: Patient Exam Limitations: Clinical condition Primary Care Provider: KAL LYONS Nursing and Triage Documentation Reviewed and Agree: Yes What is Opioid Naive?: *Opioid Naive implies the patient is not already taking opioids or not chronically receiving opioids on a daily basis. *PRN dosing is not "usually" associated with tolerance. *Patients are at higher risk of over-sedation and aspiration. What is Opioid Tolerant?: *Opioid Tolerance implies less than the expected response to an opioid. *Acquired tolerance is defined by the patient taking 60mg of oral morphine daily (or equianalgesic dose of another opioid) for 1 week or more. *Often associated with chronic pain. *May take more than usual dose to achieve desired pain control. Review of Systems Review Of Systems Constitutional: Reports Weakness Eyes: Reports No symptoms Ears, Nose, Mouth, Throat: Reports No symptoms Respiratory: Reports No symptoms Cardiac: Reports No symptoms GI: Reports No symptoms : Reports No symptoms Musculoskeletal: Reports Back pain, Neck pain and Other (Right hip pain) Skin: Reports No symptoms Neurological: Reports No symptoms Endocrine: Reports No symptoms Hematologic/Lymphatic: Reports No symptoms All Other Systems: Reviewed and Negative PFSH Family History FATHER Cancer SISTER Breast cancer Mother Dementia Social History Smoking and tobacco status: Never smoker Female Reproductive History Menstrual Hx Hysterectomy: Yes Hx Tubal Ligation: No Physical Exam Physical Exam Appearance: Reports Well-appearing and Other (Patient arrives emergency room via EMS alert and appropriate no acute distress) Ill-appearing: None Pain Distress: None Eyes: Reports SORAYA and EOMI ENT: Reports Ears normal, Nose normal and Oropharynx normal Neck: Supple (There is right lateral paraspinal cervical spine tenderness from L1-5 and 6.) Respiratory: Reports Airway patent, Breath sounds clear and Breath sounds equal Cardiovascular: Reports RRR and Pulses normal GI/: Reports Soft, Nontender, No masses and Bowel sounds normal Musculoskeletal: Reports No calf tenderness, Limited ROM (There is tenderness over the lumbar vertebral paraspinal tenderness from L1 L5, there is tenderness over the right greater trochanter of the hip there is full range of motion of the hip passively flexion extension internal rotation without pain discomfort. There is no shortening lower extremities t) and Other (There is tenderness over the lumbar spine right parasternal L2 the L4 without ecchymosis or crepitus) Skin: Reports Warm and Dry Neurological: Reports Sensation intact, Motor intact, Reflexes intact, Cranial nerves intact, Alert and Oriented (GCS-15) Psychiatric: Reports Affect appropriate and Mood appropriate Critical Care Note Critical Care Note Total Critical Care Time (mins): 0 Course Course 08/09/23 16:32 08/09/23 16:32 Orders, Labs, Meds: Lab Review 08/09/23 08/09/23 16:32 18:42 WBC 5.91 RBC 4.36 Hgb 13.4 Hct 42.0 MCV 96.3 MCH 30.7 MCHC 31.9 RDW Coeff of Sadaf 12.5 Plt Count 265 Immature Gran % (Auto) 0.2 Neut % (Auto) 69.4 Lymph % (Auto) 19.8 Gonzales % (Auto) 8.8 Eos % (Auto) 1.5 Baso % (Auto) 0.3 Neut # (Auto) 4.1 Lymph # (Auto) 1.2 Gonzales # (Auto) 0.5 Eos # (Auto) 0.1 Baso # (Auto) 0.0 Immature Gran # (Auto) 0.0 Sodium 137.7 Potassium 3.91 Chloride 104.2 Carbon Dioxide 30.6 H Anion Gap 6.81 BUN 8.5 Creatinine 0.57 L Estimated GFR (MDRD) 102.00 BUN/Creatinine Ratio 14.91 Glucose 127.4 H Calcium 9.09 Magnesium 1.98 Total Bilirubin 0.56 AST 32.2 ALT 19.1 Alkaline Phosphatase 181.1 H Troponin I < 0.012 Total Protein 6.15 L Albumin 3.92 Globulin 2.23 Albumin/Globulin Ratio 1.75 Urine Color Yellow Urine Clarity Clear Urine pH 7.0 Ur Specific Marston 1.020 Urine Protein Negative Urine Glucose (UA) Negative Urine Ketones Negative Urine Blood Negative Urine Nitrite Negative Urine Bilirubin Negative Urine Urobilinogen 0.2 Ur Leukocyte Esterase Negative Orders Category Date Time Status EKG-(ED ONLY) Stat CARDIO 08/09/23 16:10 Completed CBC W/ AUTO DIFF Stat LAB 08/09/23 16:32 Completed CMP [COMPREHENSIVE METABOLIC PANEL] Stat LAB 08/09/23 16:32 Completed MAGNESIUM Stat LAB 08/09/23 16:32 Completed TROPONIN I Stat LAB 08/09/23 16:32 Completed URINALYSIS C & S IF INDICATED Stat LAB 08/09/23 18:42 Completed Acetaminophen [Tylenol] Meds 08/09/23 16:10 Discontinued 650 mg PO ONCE STA CHEST, 1V AP ONLY Stat RADS 08/09/23 16:[address] CERVICAL SPINE W/O CONTRAST Stat RADS 08/09/23 16:[address] HEAD W/O CONTRAST Stat RADS 08/09/23 16:[address] LUMBAR SPINE W/O CONTRAST Stat RADS 08/09/23 16:[address] PELVIS W/O CONTRAST Stat RADS 08/09/23 16:10 Completed Medications Discontinued Medications Generic Name Dose Route Start Last Admin Trade Name Freq PRN Reason Stop Dose Admin Acetaminophen 650 mg 08/09/23 16:10 08/09/23 16:20 Acetaminophen 325 Mg Tablet PO 08/09/23 16:11 650 mg ONCE STA Administration Vital Signs: Temp Pulse Resp BP Pulse Ox 08/09/23 15:50 98.7 F 78 16 102/59 L 99 Discharge Plan Discharge Patient Disposition: PLACED OBSERVATION Discharge Problem: Frequent falls, Generalized weakness Lumbar transverse process fracture Qualifiers: Encounter type: initial encounter Fracture type: closed Qualified Code(s): S 32.009A - Unspecified fracture of unspecified lumbar vertebra, initial encounter for closed fracture Prescriptions: No Action acetaminophen 325 mg capsule 650 mg PO Q4H PRN (Reason: fever or pain) oxcarbazepine 150 mg Tablet 150 mg PO BEDTIME albuterol sulfate [ProAir HFA] 200 PUFF/8.5 GM HFA aerosol inhaler 2 puff inhalation Q4H PRN (Reason: shortness of air) Qty: 1 0RF Rx Instructions: gabapentin 300 mg Capsule 600 mg PO BID atorvastatin [Lipitor] 20 mg Tablet 20 mg PO DAILY enalapril maleate 5 mg Tablet 10 mg PO DAILY levothyroxine [Synthroid] 75 mcg Tablet 75 mcg PO DAILY desvenlafaxine succinate [Pristiq] 50 mg Tablet Extended Release 24 Hr 50 mg PO DAILY amlodipine 5 mg tablet 5 mg PO DAILY cholecalciferol (vitamin D3) 25 mcg (1,000 unit) capsule 25 mcg PO DAILY cyclosporine 0.05 % drops 1 drp BOTHEYES BID lamotrigine 25 mg tablet 25 mg PO BID fluticasone propionate [Allergy Relief (fluticasone)] 50 mcg/actuation spray,suspension 2 spray intranasal DAILY PRN (Reason: allergy symptoms) Rx Instructions: administer into each nostril triamcinolone acetonide [Triderm] 0.1 % cream 1 applic topical DAILY PRN (Reason: inflammation) lamotrigine 100 mg tablet 100 mg PO BID oxcarbazepine 150 mg Tablet 150 mg PO DAILY Qty: 30 0RF gabapentin 300 mg Capsule 300 mg PO DAILY@1200 Qty: 30 0RF Did you review [place] [employer] for ALL controlled substances?: Not Applicable ED Provider: SADE BROWN Condition: Stable Physician Progress Note: History obtained from the patient as well as his son, patient is a history of generalized weakness gait impairment for balance, chronic low back pain with radiculopathy, frequent falls. Patient fell while getting up from the couch to the wheelchair fell onto her right side of her head complains of neck pain lower back pain right hip pain. Patient denies loss of conscious, dizziness, blurred vision, slurred speech, focal numbness tingling weakness numbness. Patient given Tylenol 650 mg orally All laboratory data CBC, CMP, urinalysis and troponin are often normal limits The head CT scan without intravenous contrast interpretation by the radiologist shows no acute intracranial normalities. Portable chest x-ray interpretation per radiologist shows no acute cardiopulmonary process. Cervical spine CT without intravenous contrast interpretation by radiologist is consistent with multilevel neural foraminal narrowing. The pelvic CT scan without intravenous contrast shows no evidence of fracture, the femoral heads are appropriately positioned. The lumbar CT without intravenous contrast interpretation per radiologist is consistent with mild lumbar dextroscoliosis there is diffuse degenerative disc disease with multilevel central canal and foraminal stenosis. There is fractures involving the right sided transverse process of L2 and L3 prior decompressive laminectomy at L3 and L4. Differential diagnosis: 1) frequent falls 2) generalized weakness 3) L2-L3 transverse process fracture Discussed with Michele Ness at 1924 for observation without telemetry
[2023-08-09] MEDS: TYLENOL PO STA (16:20)
[2023-08-09 16:39] LABS: BASOPHILS % (AUTO) 0.3 % (0.0-3.0); EOSINOPHILS # (AUTO) 0.1 K/ul (0.0-0.7); EOSINOPHILS % (AUTO) 1.5 % (0.0-7.0); HEMOGLOBIN 13.4 g/dl (12.0-16.0); IMMATURE GRANULOCYTE % (AUTO) 0.2 % (0.0-5.0); LYMPHOCYTES # (AUTO) 1.2 K/uL (0.60-3.4); LYMPHOCYTES % (AUTO) 19.8 (10.0-50.0); MEAN CORPUSCULAR HEMOGLOBIN 30.7 pg (27.0-31.0); MEAN CORPUSCULAR HGB CONC 31.9 (31.8-35.4); MEAN CORPUSCULAR VOLUME 96.3 fl (81.0-99.0); MONOCYTES # (AUTO) 0.5 K/uL (0.4-2.0); MONOCYTES % (AUTO) 8.8 (0-10); NEUTROPHILS # (AUTO) 4.1 K/ul (2.0-6.9); NEUTROPHILS % (AUTO) 69.4 % (42.2-75.2); PLATELET COUNT 265 10^3/uL (140-440); RDW COEFFICIENT OF VARIATION 12.5 % (11.6-14.8); RED BLOOD COUNT 4.36 10^6/ul (4.20-5.40); WHITE BLOOD COUNT 5.91 K/ul (4.6-10.2)
[2023-08-09 16:51] LABS: ALANINE AMINOTRANSFERASE 19.1 U/L (0-35); ALBUMIN 3.92 g/dL (3.5-5.0); ALKALINE PHOSPHATASE 181.1 U/L (53-141); ASPARTATE AMINO TRANSFERASE 32.2 U/L (14-36); BILIRUBIN,TOTAL 0.56 mg/dL (0.2-1.3); BLOOD UREA NITROGEN 8.5 mg/dL (7-17); CALCIUM 9.09 mg/dL (8.4-10.2); CARBON DIOXIDE 30.6 mmol/L (22-30.0); CHLORIDE 104.2 mmol/L (98-107); CREATININE 0.57 mg/dL (0.60-1.30); GLUCOSE 127.4 mg/dL (74-106); MAGNESIUM 1.98 mg/dL (1.6-2.3); POTASSIUM 3.91 mmol/L (3.5-5.1); SODIUM 137.7 mmol/L (134.5-145); TOTAL PROTEIN 6.15 g/dL (6.3-8.2)
[2023-08-09 17:07] LABS: TROPONIN I < 0.012 ng/ml (0.0000-0.120)
--- NOTE | 2023-08-09 17:24 | CT ---
EXAM: CT SCAN CERVICAL SPINE HISTORY: Fall COMPARISON: CT scan cervical spine 03/26/2021 FINDINGS: We acquired axial images obtained through the cervical spine utilizing 2.5 mL collimation. Sagittal and coronal reconstructions were imaged and reviewed. The vertebral bodies are normal in h eight. There is multilevel degenerative disc disease. There is 0.9 mm anterolisthesis C4/C5, 1.1 mm anterolisthesis C5/C6 and 1.7 mm anterolisthesis C7/T1. The facet joints are intact. There is no a cute fracture. There is multilevel neural foraminal narrowing. Visualized lung apices are clear. IMPRESSION: No acute findings All CT scans are performed using dose optimization techniques as appropriate to the performed exam an d include at least one of the following: Automated exposure control, adjustment of the mA and/or kV according t o size, and the use of iterative reconstruction technique.
--- NOTE | 2023-08-09 17:35 | CT ---
EXAM: CT HEAD WITHOUT CONTRAST DATE: 08/09/2023 COMPARISON: 03/26/2021 HISTORY: Fell TECHNIQUE: A helical scan of the brain was performed without contrast. FINDINGS: The calvarium is intact.The paranasal sinuses and mastoid air cells are clear. There is mild cerebral and cerebellar volume loss with decreased attenuation in the periventricular w nurys matter. No abnormal intra or extra-axial fluid, mass or mass effect is present. There is no mi dline shift or hydrocephalus. No large vessel infarct or hemorrhage is observed. The ball-white int erface is maintained. IMPRESSION: No acute intracranial findings.Senescent changes with chronic microvascular disease. All CT scans are performed using dose optimization techniques as appropriate to the performed exam an d include at least one of the following: Automated exposure control, adjustment of the mA and/or kV according t o size, and the use of iterative reconstruction technique.
--- NOTE | 2023-08-09 17:42 | CT ---
EXAM: CT SCAN OF THE PELVIS WITHOUT IV CONTRAST. Date: 08/09/2023 Comparison: None History: Right hip pain Technique: A helical scan of the pelvis was performed without IV contrast. Findings: The soft tissue musculature overlying the pelvis are normal. The small bowel and colon in the lower abdomen pelvis are normal. The bladder is normal. Hysterectomy. The rectum and left ingu inal region are normal; there is a 2.5 x 1.3 cm fluid collection in the right inguinal region. Lower lumbar laminectomy defects are present but the lumbar spine is incompletely visualized. The pe lvis is intact and the femoral heads are appropriately positioned. No fracture or dislocation. Impression: No acute osseous abnormality in the pelvis or hips. All CT scans are performed using dose optimization techniques as appropriate to the performed exam an d include at least one of the following: Automated exposure control, adjustment of the mA and/or kV according t o size, and the use of iterative reconstruction technique.
--- NOTE | 2023-08-09 17:49 | CT ---
EXAM: CT SCAN LUMBAR SPINE HISTORY: Fall COMPARISON: MRI lumbar spine 06/09/2020 FINDINGS: Helically acquired axial images were obtained through the lumbar spine utilizing 2.5-mm co llimation. Sagittal and coronal reconstructions were imaged and reviewed... There is diffuse degene rative disc disease with ventral spondylitic changes. There is 3.5 mm retrolisthesis L2/L3. . Ther e is multilevel central canal foraminal stenosis.. Prior decompressive laminectomy at L3 and -L4.. 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 Fractures involving the right sided transverse processes of L2 and -L3 All CT scans are performed using dose optimization techniques as appropriate to the performed exam an d include at least one of the following: Automated exposure control, adjustment of the mA and/or kV according t o size, and the use of iterative reconstruction technique.
--- NOTE | 2023-08-09 17:55 | DI ---
EXAM: SINGLE VIEW CHEST XRAY. Date: 08/09/2023 Comparison: 07/15/2016 History: Dyspnea Findings: Orthopedic hardware is present in the right humerus. There is mild hyperinflation. No acut e osseous abnormality. The lungs are clear . The cardiac silhouette is within normal limits. The pu lmonary vasculature is within normal limits. Impresson: No acute intrathoracic findings.Mild hyperinflation.
[2023-08-09 18:48] LABS: BILIRUBIN,URINE Negative (NEGATIVE); CLARITY,URINE Clear (CLEAR); COLOR,URINE Yellow (YELLOW); GLUCOSE, URINE (UA) Negative (NEGATIVE); KETONES,URINE Negative (NEGATIVE); LEUKOCYTE ESTERASE ,URINE Negative (NEGATIVE); NITRITE,URINE Negative (NEGATIVE); PROTEIN,URINE Negative (NEGATIVE); URINE, BLOOD Negative (NEGATIVE); UROBILINOGEN,URINE 0.2 (0.2)
[2023-08-09 19:55] LABS: SARS COV-2 RNA RAPID NAAT NEGATIVE (NEGATIVE)
[2023-08-09] MEDS ORDERED: TYLENOL PO PRN (20:14)
[2023-08-09] MEDS ORDERED: VENTOLIN HFA IH PRN (22:19)
[2023-08-09 23:43] VITALS: BMI 22.0
[2023-08-10 06:10] LABS: BASOPHILS % (AUTO) 0.6 % (0.0-3.0); EOSINOPHILS # (AUTO) 0.1 K/ul (0.0-0.7); EOSINOPHILS % (AUTO) 1.7 % (0.0-7.0); HEMATOCRIT 41.8 % (37.0-47.0); HEMOGLOBIN 12.6 g/dl (12.0-16.0); LYMPHOCYTES # (AUTO) 1.4 K/uL (0.60-3.4); LYMPHOCYTES % (AUTO) 29.2 (10.0-50.0); MEAN CORPUSCULAR HEMOGLOBIN 30.7 pg (27.0-31.0); MEAN CORPUSCULAR HGB CONC 30.1 (31.8-35.4); MEAN CORPUSCULAR VOLUME 101.7 fl (81.0-99.0); MONOCYTES # (AUTO) 0.5 K/uL (0.4-2.0); MONOCYTES % (AUTO) 9.7 (0-10); NEUTROPHILS # (AUTO) 2.8 K/ul (2.0-6.9); NEUTROPHILS % (AUTO) 58.8 % (42.2-75.2); PLATELET COUNT 225 10^3/uL (140-440); RDW COEFFICIENT OF VARIATION 12.6 % (11.6-14.8); RED BLOOD COUNT 4.11 10^6/ul (4.20-5.40); WHITE BLOOD COUNT 4.83 K/ul (4.6-10.2)
[2023-08-10 06:23] LABS: ALANINE AMINOTRANSFERASE 17.8 U/L (0-35); ALBUMIN 3.36 g/dL (3.5-5.0); ALKALINE PHOSPHATASE 179.5 U/L (53-141); ASPARTATE AMINO TRANSFERASE 62.6 U/L (14-36); BILIRUBIN,TOTAL 0.69 mg/dL (0.2-1.3); BLOOD UREA NITROGEN 8.2 mg/dL (7-17); CALCIUM 8.6 mg/dL (8.4-10.2); CARBON DIOXIDE 28.1 mmol/L (22-30.0); CHLORIDE 105.5 mmol/L (98-107); CREATININE 0.56 mg/dL (0.60-1.30); GLUCOSE 100.7 mg/dL (74-106); POTASSIUM 3.89 mmol/L (3.5-5.1); SODIUM 136.2 mmol/L (134.5-145); TOTAL PROTEIN 5.57 g/dL (6.3-8.2)
[2023-08-10] MEDS: PRISTIQ ER PO SCH (08:37)
[2023-08-10] MEDS: TRILEPTAL PO SCH (08:37)
[2023-08-10] MEDS: LAMICTAL PO SCH (08:37)
[2023-08-10] MEDS: VASOTEC PO SCH (08:37)
[2023-08-10] MEDS: VITAMIN D PO SCH (08:38)
[2023-08-10] MEDS: NORVASC PO SCH (08:38)
[2023-08-10] MEDS: LIPITOR PO SCH (08:38)
[2023-08-10] MEDS: NEURONTIN PO SCH ×2 (08:38→11:18)
[2023-08-10] MEDS: SYNTHROID PO SCH (08:40)
[2023-08-10] MEDS ORDERED: LAMICTAL PO SCH (09:00)
--- NOTE | 2023-08-10 09:29 | PCM.SS ---
Provider Provider: LEONEL FOSTER [facility], [facility] Ad[facility] Date Admission Date: 08/09/23 Discharge Date Discharge Date: 08/10/23 Primary Care Physician Primary Care Physician: KAL LYONS Chief Complaint Reason For Visit: FREQUENT FALLS,WEAKNESS History of Present Illness History of Present Illness: Admitted 08/09/23 20:15, this 83 year old /WHITE/F presented to the ER from local assisted living with son following a ground-level fall. Patient was standing to get up off the couch and fell over. Denies hitting her head. Patient was found to have fractures to L2&L3 transverse processes. Patient reports feeling sore all over today. Patient was here from 06/18/23-06/24/23 for swingbed and was discharged to [facility]. She was then at [facility] until 07/29/23 and was discharged to [facility]. Since she has been there, she has fallen multiple times. Spoke extensively with the son and he reports that he felt that she was discharged from [facility] too soon and he is unable to lift on her at home due to fear of hurting her. Admitted to med/surg observation for facilitation of readmission to snf. 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 - Disorder of trigeminal nerve, unspecified (ICD-10) Back disorder Spinal stenosis M53.9 - Dorsopathy, unspecified (ICD-10) Diabetes NIDM E11.9 - Type 2 diabetes mellitus without complications (ICD-10) Surgical History History of hysterectomy Z90.710 - Acquired absence of both cervix and uterus (ICD-10) History of cholecystectomy Z90.49 - Acquired absence of other specified parts of digestive tract (ICD- 10) Family History FATHER Cancer SISTER Breast cancer Mother Dementia Social History Smoking and tobacco status: Never smoker Medications Mecications: Medications at Discharge (Home Meds & RX) albuterol sulfate 90 mcg/actuation aerosol inhaler (ProAir HFA) 2 puff inhalation Q4H PRN shortness of air #1 puff 06/15/16 atorvastatin 20 mg tablet (Lipitor) 20 mg PO DAILY 05/02/19 enalapril maleate 5 mg tablet 10 mg PO DAILY 05/02/19 gabapentin 300 mg capsule 600 mg PO BID 05/02/19 levothyroxine 75 mcg tablet (Synthroid) 75 mcg PO DAILY 05/02/19 desvenlafaxine succinate 50 mg tablet,extended release 24 hr (Pristiq) 50 mg PO DAILY 05/07/19 amlodipine 5 mg tablet 5 mg PO DAILY 06/18/23 cholecalciferol (vitamin D3) 25 mcg (1,000 unit) capsule 25 mcg PO DAILY 06/18/23 cyclosporine 0.05 % eye drops 1 drp BOTHEYES BID 06/18/23 lamotrigine 25 mg tablet 25 mg PO BID 06/18/23 fluticasone propionate 50 mcg/actuation nasal spray,suspension (Allergy Relief (fluticasone)) 2 spray intranasal DAILY PRN allergy symptoms 06/19/23 triamcinolone acetonide 0.1 % topical cream (Triderm) 1 applic topical DAILY PRN inflammation 06/19/23 lamotrigine 100 mg tablet 100 mg PO BID 06/20/23 gabapentin 300 mg capsule 300 mg PO DAILY@1200 #30 caps 06/24/23 oxcarbazepine 150 mg tablet 150 mg PO DAILY #30 tabs 06/24/23 acetaminophen 325 mg capsule 650 mg PO Q4H PRN fever or pain 08/09/23 oxcarbazepine 150 mg tablet 300 mg PO BEDTIME 08/09/23 Allergies Allergies Allergy/AdvReac Type Severity Reaction Status Date / Time morphine AdvReac HALLUCINATI Verified 08/09/23 15:55 ONS Review of Systems Constitutional: Reports No symptoms Head: Reports Normocephalic Eyes: Reports No symptoms Ears: Reports No symptoms Nose: Reports No symptoms Mouth: Reports No symptoms Throat: Reports No symptoms Cardiovascular: Reports No symptoms Respiratory: Reports No symptoms Gastrointestinal: Reports No symptoms Genitourinary: Reports No Symptoms Musculoskeletal: Reports Back Pain Dermatologic: Reports Rashes Endocrine: Reports No symptoms Hematology: Reports No symptoms Immunology: Reports No symptoms Neurological: Reports No symptoms Psychiatric: Reports No symptoms Physical Examination Appearance: Positive No Apparent Distress and Alert and Oriented x3 Head: Positive Normocephalic Eyes: Positive SORAYA Neck: Positive Supple, Non-Tender and Trachea Midline Heart: Positive RRR and No Murmurs Respiratory: Positive Airway patent, Breath Sounds Clear, Bilaterally, Breath Sounds Equal and Respirations Nonlabored GI/: Positive Soft, Nontender, Bowel sounds normal and No Distention Extremities: Positive Pedal Pulses Palpable Bilaterally Neurological: Positive Sensation Intact, Motor Intact, Alert and Oriented Vital Signs (Last 4 Hours) Vital Signs Last 4 Hours: Vital Signs: Last 4 Hours 08/10/23 06:00 08/10/23 07:00 08/10/23 08:00 Oxygen Delivery Method Room Air Room Air Room Air 08/10/23 08:00 08/10/23 09:00 Oxygen Delivery Method Room Air Room Air Labs This Visit Labs This Visit: Labs This Visit 08/09/23 08/09/23 08/09/23 16:32 18:42 19:35 WBC 5.91 RBC 4.36 Hgb 13.4 Hct 42.0 MCV 96.3 MCH 30.7 MCHC 31.9 RDW Coeff of Sadaf 12.5 Plt Count 265 Immature Gran % (Auto) 0.2 Neut % (Auto) 69.4 Lymph % (Auto) 19.8 Greene % (Auto) 8.8 Eos % (Auto) 1.5 Baso % (Auto) 0.3 Neut # (Auto) 4.1 Lymph # (Auto) 1.2 Greene # (Auto) 0.5 Eos # (Auto) 0.1 Baso # (Auto) 0.0 Immature Gran # (Auto) 0.0 Sodium 137.7 Potassium 3.91 Chloride 104.2 Carbon Dioxide 30.6 H Anion Gap 6.81 BUN 8.5 Creatinine 0.57 L Estimated GFR (MDRD) 102.00 BUN/Creatinine Ratio 14.91 Glucose 127.4 H Calcium 9.09 Magnesium 1.98 Total Bilirubin 0.56 AST 32.2 ALT 19.1 Alkaline Phosphatase 181.1 H Troponin I < 0.012 Total Protein 6.15 L Albumin 3.92 Globulin 2.23 Albumin/Globulin Ratio 1.75 Urine Color Yellow Urine Clarity Clear Urine pH 7.0 Ur Specific Taylor 1.020 Urine Protein Negative Urine Glucose (UA) Negative Urine Ketones Negative Urine Blood Negative Urine Nitrite Negative Urine Bilirubin Negative Urine Urobilinogen 0.2 Ur Leukocyte Esterase Negative SARS CoV-2 RNA Rapid MIRANDA Negative 08/10/23 08/10/23 05:30 05:40 WBC 4.83 RBC 4.11 L Hgb 12.6 Hct 41.8 MCV 101.7 H D MCH 30.7 MCHC 30.1 L RDW Coeff of Sadaf 12.6 Plt Count 225 Immature Gran % (Auto) 0.0 Neut % (Auto) 58.8 Lymph % (Auto) 29.2 Greene % (Auto) 9.7 Eos % (Auto) 1.7 Baso % (Auto) 0.6 Neut # (Auto) 2.8 Lymph # (Auto) 1.4 Greene # (Auto) 0.5 Eos # (Auto) 0.1 Baso # (Auto) 0.0 Immature Gran # (Auto) 0.0 Sodium 136.2 Potassium 3.89 Chloride 105.5 Carbon Dioxide 28.1 Anion Gap 6.49 BUN 8.2 Creatinine 0.56 L Estimated GFR (MDRD) 104.00 BUN/Creatinine Ratio 14.64 Glucose 100.7 Calcium 8.60 Magnesium Total Bilirubin 0.69 AST 62.6 H D ALT 17.8 Alkaline Phosphatase 179.5 H Troponin I Total Protein 5.57 L Albumin 3.36 L Globulin 2.21 Albumin/Globulin Ratio 1.52 Urine Color Urine Clarity Urine pH Ur Specific Taylor Urine Protein Urine Glucose (UA) Urine Ketones Urine Blood Urine Nitrite Urine Bilirubin Urine Urobilinogen Ur Leukocyte Esterase SARS CoV-2 RNA Rapid MIRANDA Imaging Imaging: EXAM: CT SCAN LUMBAR SPINE FINDINGS: Helically acquired axial images were obtained through the lumbar spine utilizing 2.5-mm collimation. Sagittal and coronal reconstructions were imaged and reviewed... There is diffuse degenerative disc disease with ventral spondylitic changes. There is 3.5 mm retrolisthesis L2/L3. . There is multilevel central canal foraminal stenosis.. Prior decompressive laminectomy at L3 and -L4.. 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 Fractures involving the right sided transverse processes of L2 and -L3 Review Review Statement: I have independently reviewed and interpreted the labs/EKGs/imaging that were ordered by the ER provider. I have reviewed all outside records that are available currently in our EMR including imaging/notes/labs from previous visits. Plan Reccomendations/Plan: 1. Fracture to transverse processes of lumbar spine L2&L3 - norco 5/325 Q8H prn for pain Unsafe discharge from ER due to patient inability to be return to assisted living and unable to go home with family. Additional Planning: Case discussed with ED Physician, Dr. Kendrick. DVT Prophylaxis: Ambulation with assistance Disposition: [facility] Admit to: Med/surg Observation Discussed Plan of Care with Dr. Adan Foster If patient discharged with Left Ventricular Systolic Dysfunction: NA Discharged with a beta justin? [] If no, why not? [] Discharged with an sallie/arb? [] If no, why not? [] Diagnosis: Lumbar Transverse Process Fracture Diet: Regular Activity: As tolerated Follow-up with PCP this week/early next week Medications: [place] 5/325 Q8H prn for pain Review With Patient Reviewed with Patient and Family: Patient and family have been counseled on condition and care plan and have no immediate questions. I have personally discussed and reviewed the patient's visit/current labs/imaging/decision making with Dr. Marlene Foster, my supervising attending. Total number of minutes spent with patient 85 min. More than 50% of the time spent with this patient was devoted to counseling and coordination of care. Time of Admission:08/09/23 20:15 Time of Discharge: Discharge Plan Discharge Discharge Orders: Discharge Patient (ONCE); Ordered 08/10/23 Ordered By: CAROLE ANAYA Activity Restrictions/Additional Instructions: Diagnosis: Lumbar Transverse Process Fracture Diet: Regular Activity: As tolerated Follow-up with PCP this week/early next week Medications: [place] 5/325 Q8H prn for pain Instructions: Transverse Process Fracture (GEN) Patient Disposition: TRANSFER SNF Prescriptions: New hydrocodone-acetaminophen 5-325 mg tablet 1 tab PO Q8H PRN (Reason: pain) Qty: 90 0RF Continued acetaminophen 325 mg capsule 650 mg PO Q4H PRN (Reason: fever or pain) oxcarbazepine 150 mg Tablet 300 mg PO BEDTIME albuterol sulfate [ProAir HFA] 200 PUFF/8.5 GM HFA aerosol inhaler 2 puff inhalation Q4H PRN (Reason: shortness of air) Qty: 1 0RF Rx Instructions: gabapentin 300 mg Capsule 600 mg PO BID atorvastatin [Lipitor] 20 mg Tablet 20 mg PO DAILY enalapril maleate 5 mg Tablet 10 mg PO DAILY levothyroxine [Synthroid] 75 mcg Tablet 75 mcg PO DAILY desvenlafaxine succinate [Pristiq] 50 mg Tablet Extended Release 24 Hr 50 mg PO DAILY amlodipine 5 mg tablet 5 mg PO DAILY cholecalciferol (vitamin D3) 25 mcg (1,000 unit) capsule 25 mcg PO DAILY cyclosporine 0.05 % drops 1 drp BOTHEYES BID lamotrigine 25 mg tablet 25 mg PO BID fluticasone propionate [Allergy Relief (fluticasone)] 50 mcg/actuation spray,suspension 2 spray intranasal DAILY PRN (Reason: allergy symptoms) Rx Instructions: administer into each nostril triamcinolone acetonide [Triderm] 0.1 % cream 1 applic topical DAILY PRN (Reason: inflammation) lamotrigine 100 mg tablet 100 mg PO BID oxcarbazepine 150 mg Tablet 150 mg PO DAILY Qty: 30 0RF gabapentin 300 mg Capsule 300 mg PO DAILY@1200 Qty: 30 0RF Did you review [place] REGISTRATION SCHEDULING SPECIALIST for ALL controlled substances?: Yes Discussed opioids are addictive and Narcan is available by prescription or from pharmacy.: Yes Condition: Stable
[2023-08-10] MEDS ORDERED: NORCO 5-325 PO PRN (09:31)
[2023-08-10 09:50] VITALS: BP 113/69; PULSE 62; RESP 17; TEMP 97.8
[2023-08-10] MEDS ORDERED: TRILEPTAL PO SCH (21:00)
== END 2023-08-10 13:08 ==
LOC: MEDSURG B 15:46 → ED 15:46 → MEDSURG B 20:42
PROVIDERS: ADMIT Hospitalist; ATTEND Nurse Practitioner Family
DX: M51.36 Other intervertebral disc degeneration, lumbar region; S32.028A Other fracture of second lumbar vertebra, initial encounter for closed fracture; Z51.81 Encounter for therapeutic drug level monitoring; R26.89 Other abnormalities of gait and mobility; S32.038A Other fracture of third lumbar vertebra, initial encounter for closed fracture; R29.6 Repeated falls; M62.81 Muscle weakness (generalized); S29.9XXA Unspecified injury of thorax, initial encounter; Z20.822 Contact with and (suspected) exposure to COVID-19; M54.2 Cervicalgia; M54.16 Radiculopathy, lumbar region; W19.XXXA Unspecified fall, initial encounter; M54.50 Low back pain, unspecified; M25.551 Pain in right hip; Z79.899 Other long term (current) drug therapy